=== PATIENT | female | born 1985 | race Caucasian/White ===

== ENCOUNTER → 2018-03-15 16:43 | Outpatient (CLI) | payer OTHER, SELFPAY ==
[2018-03-15 18:40] LABS: Bacteria 0 SEEN /hpf (None Seen); Mucous, Urine 0 SEEN /hpf (<or=2+); Red Blood Cells-Urine 0 SEEN /hpf (0-5); White Blood Cells 0 SEEN /hpf (0-5)
[2018-03-15 19:17] LABS: Color, Urine Yellow (Yellow); Glucose, Dipstick Normal (Normal); Ketone-Dipstick Negative (Negative); Leukocyte Esterase-Dipstick 25 /ul (Negative); Nitrite-Dipstick Negative (Negative); Occult Blood-Urine Negative /ul (Negative); Protein-Dipstick Negative (Negative); Specific Gravity, Urine 1.005 (1.002-1.030); Urine Bilirubin Dipstick Negative (Negative); Urine Clarity Clear (Clear); Urine Urobilinogen Normal (Normal)
[2018-03-15 19:23] LABS: Squamous Epithelial Cells - UA 0-5 SEEN /hpf (5-10)
== END ==
PROVIDERS: Family Provider Student in an Organized Health Care Education/Training Program; PCP Student in an Organized Health Care Education/Training Program; Visit Provider Physician Assistant Surgical
DX: N30.00 Acute cystitis without hematuria (principal)
CPT/HCPCS: 81001; 87086

== ENCOUNTER → 2018-05-20 09:45 | Outpatient (CLI) | payer OTHER, SELFPAY ==
--- NOTE | 2018-05-20 10:18 | RAD_ITS ---
STUDY: X-RAY - RIGHT HAND REASON FOR EXAM: Female, 33 years old. Pain distal first metacarpal TECHNIQUE: 3 view(s) of the hand. COMPARISON: Prior study of 04/17/2017 FINDINGS: Normal radiocarpal articulation. Normal distal radioulnar joint. Normal visualized carpal bones. Normal carpal articulations Normal carpometacarpal articulation of the thumb. Normal second through fifth carpometacarpal joints. Normal metacarpi. Normal metacarpophalangeal joint of the thumb. Normal interphalangeal joint of the thumb. Normal proximal and distal phalanges of the thumb. Normal metacarpophalangeal joints of the second through fifth fingers. Normal proximal and distal interphalangeal joints of the second through fifth fingers. Normal phalanges of the second through fifth fingers. The soft tissue structures are unremarkable. RAD/Hand Min 3 Views IMPRESSION: Normal x-ray examination of the hand. Electronically Signed: Kit Fisher MD at 19:06 EDT , Service support ,
--- NOTE | 2018-05-20 10:19 | RAD_ITS ---
STUDY: X-RAY - LEFT FOOT CLINICAL: Female, 33 years old. Pain, bony growth distal first metatarsal TECHNIQUE: 3 view(s) of the foot. COMPARISON: None. FINDINGS: Normal talus, calcaneus, and tarsal bones. Normal visualized subtalar, talonavicular, calcaneocuboid, tarsal and tarsometatarsal articulations. Normal metatarsi. Normal metatarsophalangeal joint of the great toe. Normal tibial and fibular sesamoid bones. Normal interphalangeal joint of the great toe. Normal phalanges of the great toe. Normal second through fifth metatarsophalangeal joints. Normal interphalangeal joints and phalanges of the lesser toes. The soft tissue structures are unremarkable. RAD/Foot min 3 Views IMPRESSION: Normal x-ray examination of the foot. Electronically Signed: Kit Fisher MD at 19:02 EDT , Service support ,
[2018-05-20 10:58] LABS: Erythrocyte Sedimentation Rate < 1 mm/hr (0-20)
[2018-05-20 11:34] LABS: Vitamin B12 359 pg/mL (211-911); Vitamin D,25 Hydroxy 24.9 ng/mL (29.95-100.01)
[2018-05-20 11:41] LABS: ALB/GLOB Ratio 1.2 RATIO (0.9-2.4); AST(SGOT) 11 U/L (15-37); Alanine Aminotransfer ALT/SGPT 17 U/L (13-56); Alkaline Phosphatase 38 U/L (45-117); Anion Gap 8 (5-15); BUN 12 mg/dL (7-18); BUN/Creat Ratio 13.5 RATIO (10-20); CRP < 2.90 mg/L (0.0-3.0); Calcium,Total 8.8 mg/dL (8.5-10.1); Chloride 105 mmol/L (98-107); Creatinine, Serum 0.89 mg/dL (0.55-1.02); EST Glomerular Filtration Rate 78 mL/min (>60); Est Glom Filt Rate - Afr Amer 94 mL/min (>60); Globulin 3.2 g/dL (2.2-4.2); Glucose 70 mg/dL (74-106); Potassium 4.2 mmol/L (3.5-5.1); Protein, Total 7.2 g/dL (6.4-8.2); Rheumatoid Factor < 10.0 IU/mL (<15); Sodium Level 140 mmol/L (136-145); T4 Free Direct 0.97 ng/dL (0.76-1.46); Thyroid Stim Hormone (TSH) 0.78 uIU/mL (0.358-3.74)
[2018-05-23 11:34] LABS: CCP IgG Antibodies 5 units (0-19)
== END ==
PROVIDERS: Family Provider Student in an Organized Health Care Education/Training Program; PCP Student in an Organized Health Care Education/Training Program; Visit Provider Student in an Organized Health Care Education/Training Program
DX: M79.641 Pain in right hand (principal); M25.375 Other instability, left foot; R41.3 Other amnesia; M25.50 Pain in unspecified joint; L29.9 Pruritus, unspecified; R61 Generalized hyperhidrosis
CPT/HCPCS: 36415; 73130; 73630; 80053; 82306; 82607; 84439; 84443; 84480; 85652; 86038; 86140; 86200; 86431

== ENCOUNTER → 2019-10-16 10:11 | Outpatient (CLI) | payer OTHER, SELFPAY ==
[2018-10-18 11:02] VITALS: BMI 19.1
[2019-10-16 11:05] LABS: Absolute Lymphocyte Count 1.71 X10^3/uL (0.83-4.51); Absolute Neutrophil Count 2.2 X10^3/uL (2.0-7.7); Basophil# 0.04 X10^3/uL; Basophil% 0.9 % (0-1); Eosinophil# 0.11 X10^3/uL; Eosinophils% 2.5 % (0-5); Erythrocyte Sedimentation Rate < 1 mm/hr (0-20); Hematocrit 44.8 % (37-47); Hemoglobin 14.9 g/dL (12.0-15.0); Lymphocyte # 1.71 X10^3/ul (4.0); Lymphocyte % 38.7 % (19-41); Mean Corp Hgb Conc 33.3 g/dL (32-36); Mean Corpuscular Hgb 30.4 pg (27.0-32.0); Mean Corpuscular Volume 91.4 fL (81-99); Mean Platelet Vol. 9.4 fl (6.2-12.0); Monocyte# 0.41 X10^3/uL; Monocyte% 9.3 % (0-10); NRBC Flagged by Analyzer 0 % (0-5); Neutrophil # 2.15 X10^3/uL (2.7-7.7); Neutrophil % 48.6 % (47-70); Platelet Count 272 K/mm3 (150-450); RBC Distribution Width CV 11.7 % (11.6-14.6); RBC Distribution Width SD 39.8 fl (35.1-43.9); White Blood Count 4.4 K/mm3 (4.4-11.0)
[2019-10-16 11:52] LABS: ALB/GLOB Ratio 1.3 RATIO (0.9-2.4); AST(SGOT) 12 U/L (15-37); Alanine Aminotransfer ALT/SGPT 21 U/L (13-56); Albumin, Serum 4.2 g/dL (3.2-5.0); Alkaline Phosphatase 47 U/L (45-117); Anion Gap 6 (5-15); BUN 14 mg/dL (7-18); BUN/Creat Ratio 14.9 RATIO (10-20); CPK Total, Creatine Kinase 82 U/L (26-192); CRP < 2.90 mg/L (0.0-3.0); Calcium,Total 8.8 mg/dL (8.5-10.1); Chloride 106 mmol/L (98-107); Creatinine, Serum 0.94 mg/dL (0.55-1.02); EST Glomerular Filtration Rate 72 mL/min (>60); Est Glom Filt Rate - Afr Amer 87 mL/min (>60); Free T3 2.7 pg/mL (2.18-3.98); Globulin 3.2 g/dL (2.2-4.2); Glucose 84 mg/dL (74-106); Potassium 4.5 mmol/L (3.5-5.1); Protein, Total 7.4 g/dL (6.4-8.2); Rheumatoid Factor < 10.0 IU/mL (<15); Sodium Level 140 mmol/L (136-145); T4 Free Direct 1.08 ng/dL (0.76-1.46); Thyroid Stim Hormone (TSH) 1.96 uIU/mL (0.358-3.74)
[2019-10-17 09:22] LABS: Vitamin D,25 Hydroxy 24.7 ng/mL
[2019-10-17 14:08] LABS: RNP Ab <0.2 AI (0.0-0.9)
[2019-10-17 16:46] LABS: Smith Ab <0.2 AI (0.0-0.9)
== END ==
PROVIDERS: PCP Student in an Organized Health Care Education/Training Program; Referring Provider Student in an Organized Health Care Education/Training Program; Visit Provider Student in an Organized Health Care Education/Training Program
DX: M79.10 Myalgia, unspecified site (principal); M25.50 Pain in unspecified joint; M25.60 Stiffness of unspecified joint, not elsewhere classified
CPT/HCPCS: 80053; 82306; 82550; 84439; 84443; 84481; 85025; 85652; 86140; 86235; 86431

== ENCOUNTER → 2020-11-13 13:25 | Outpatient (CLI) | payer OTHER, SELFPAY ==
[2020-11-13 09:37] VITALS: BMI 18.4
[2020-11-18 12:28] LABS: HPV APTIMA, High Risk Positive (Negative)
== END ==
PROVIDERS: PCP Student in an Organized Health Care Education/Training Program; Visit Provider Obstetrics & Gynecology
DX: Z12.4 Encounter for screening for malignant neoplasm of cervix (principal)
CPT/HCPCS: 87624; 88175; G0145

== ENCOUNTER → 2020-12-12 16:07 | Outpatient (CLI) | payer OTHER, SELFPAY ==
--- NOTE | 2020-12-12 | IMM_PTH ---
PATIENT: MARQUEZ CUBA LOC: [facility] U#:[id number] AGE/SX: 40/F ROOM: RE12/12/[address]: Dr. Anisa Cade MD : 1985 BED: DIS: SPEC #: [id number] RECD: 12/16/20 12:10 STATUS: JUANITO REZoraida #: [id number] COLE: 12/12/20 00:[address]: Anisa Cade DEPT: IMMUNOHISTOCHEMISTRY RECD BY: Beth Peterson ENTERED: 12/16/20 12:11 SP TYPE: IMMUNO OTHR DR: Dr. Shaheen Ernst DO Tissues: A - Uterine cervix, NOS B - Uterine cervix, NOS Procedures: p16 (initial) KI-67 (add) PHYSICIAN & INSTITUTION [place] [id number] SPECIMEN INFORMATION: Tissue Source: A ? Cervix at 8 o?clock, B ? Cervix at 11 o?clock Clinical Info: LGSIL Specimen Number: [id number] A & B CPT code: 04943 x2, 26519 x2 METHODOLOGY: Deparaffinized sections of prefer/formalin-fixed tissue or PAP/DQ stained slides are incubated with monoclonal/polyclonal antibodies/oligonucleotide probes. Localization is made via biotin free immunoperoxidase method. Appropriate controls are performed and reacted as expected. Results on target cell population are indicated in the following table: RESULTS: ANTIBODY / CLONE RESULT Block A P16 (E6H4) positive, focal patchy staining Ki-67 (30-9) positive, low Block B P16 (E6H4) positive, focal patchy staining Ki-67 (30-9) positive, low to moderate These tests were developed and their performance characteristics determined by [facility]. They may not have been cleared or approved by the U.S. Food and Drug Administration. The FDA has determined that such clearance or approval is not necessary. The above immunohistochemical/dualISH markers are ordered and reviewed by the Pathologist. INTERPRETATION: A. Cervix at 8 o?clock, biopsy: Focal changes suspicious for HPV changes. B. Cervix at 11 o?clock, biopsy: Focal mild squamous dysplasia. SJ:ousmane 12/17/2020 Case has been reviewed in consultation with Dr. Guerin who concurs with the above diagnosis. IDC:AM
--- NOTE | 2020-12-12 | CER_PTH ---
PATIENT: MARQUEZ CUBA LOC: [facility] U#:[id number] AGE/SX: 40/F ROOM: RE12/12/[address]: Dr. Anisa Cade MD : 1985 BED: DIS: SPEC #: [id number] RECD: 12/12/20 15:41 STATUS: JUANITO NATE #: [id number] COLE: 12/12/20 00:[address]: Anisa Cade DEPT: SURGICAL PATHOLOGY RECD BY: Latonia Cevallos ENTERED: 12/13/20 08:08 SP TYPE: CERV OTHR DR: Dr. Shaheen Ernst DO Tissues: A - Uterine cervix, NOS B - Uterine cervix, NOS Procedures: Surgery Specimen Level IV HEADER OPERATION: Colposcopy PRE-OP DIAGNOSIS: LGSIL TISSUE SUBMITTED: A ? 8 o?clock, B ? 11 o?clock MICROSCOPIC DIAGNOSIS A. Cervix, 8 o?clock, biopsy: Focal minimal HPV cytopathic effects. Acute and chronic inflammation and extensive squamous metaplasia. Focal hyperkeratosis and parakeratosis. See comment. B. 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 Mild acute and chronic inflammation and extensive squamous metaplasia See comment. SJ:rg 12/16/2020 COMMENT A & B. Immunohistochemistry ([id number]) for surrogate HPV marker (p16) supports the above diagnosis. Case has been reviewed in consultation with Dr. Guerin who concurs with the above diagnosis. IDC:AM MICROSCOPIC DESCRIPTION Slides are reviewed. GROSS DESCRIPTION A - Received in fixative is one container labeled with the patient's name and designated 8 o'clock. The specimen consists of two irregular fragments of light guajardo soft tissue that in aggregate measure 0.5 x 0.3 x 0.1 cm. The specimen is totally submitted in one cassette. B - Received in fixative is one container labeled with the patient's name and designated 11 o'clock. The specimen consists of multiple irregular fragments of light guajardo soft tissue that in aggregate measure 1.2 x 0.3 x <0.1 cm. The specimen is totally submitted in one cassette. / AM:ousmane 12/13/20 TC:5 CPT: 13375 x2
[2020-12-12 09:38] VITALS: BMI 19.1
== END ==
PROVIDERS: PCP Student in an Organized Health Care Education/Training Program; Referring Provider Obstetrics & Gynecology; Visit Provider Obstetrics & Gynecology
DX: N89.8 Other specified noninflammatory disorders of vagina (principal)
CPT/HCPCS: 87070; 87077; 87205; 88305; 88341; 88342

== ENCOUNTER → 2021-04-27 11:27 | Outpatient (CLI) | payer OTHER, SELFPAY ==
[2021-04-27 16:50] LABS: Mucous, Urine 0 SEEN /hpf (<or=2+); Red Blood Cells-Urine 0 SEEN /hpf (0-5); White Blood Cells 0 SEEN /hpf (0-5)
[2021-04-27 17:06] LABS: Color, Urine Yellow (Yellow); Glucose, Dipstick Normal (Normal); Ketone-Dipstick Negative (Negative); Leukocyte Esterase-Dipstick Negative /ul (Negative); Nitrite-Dipstick Negative (Negative); Occult Blood-Urine 25 /ul (Negative); Protein-Dipstick Negative (Negative); Specific Gravity, Urine 1.005 (1.002-1.030); Urine Bilirubin Dipstick Negative (Negative); Urine Clarity Clear (Clear); Urine Urobilinogen Normal (Normal)
[2021-04-27 17:17] LABS: Squamous Epithelial Cells - UA 0-5 SEEN /hpf (5-10)
[2021-04-27 17:18] LABS: Bacteria RARE /hpf (None Seen)
== END ==
PROVIDERS: PCP Student in an Organized Health Care Education/Training Program; Referring Provider Nurse Practitioner Family; Visit Provider Nurse Practitioner Family
DX: N30.00 Acute cystitis without hematuria (principal)
CPT/HCPCS: 81001; 87086; 87088; 87186

== ENCOUNTER 2021-07-25 10:00 | Outpatient (RCR) | payer OTHER, SELFPAY ==
--- NOTE | 2021-08-29 12:29 | HP.PT.NRP ---
MARQUEZ CUBA was seen in my office for initial evaluation on . The following Plan of Care was established for this patient: This patient was last seen in our office 07/25/21. Pertinent comments regarding their Physical therapy will appear below: Pt. was seen in PT for DN. She has not been seen in ~5 weeks and will be DC from PT at this point in time. At this point I will be discontinuing this patient from physical therapy. I would be happy to see this patient again in the future if found appropriate by the physician. Thank you! Ananth Mendez, ERICAT
== END 2021-07-25 19:00 | disposition home or self-care (01) ==
LOC: PT 10:00
PROVIDERS: PCP Student in an Organized Health Care Education/Training Program
DX: R69 Illness, unspecified (principal)

== ENCOUNTER → 2021-12-25 | Outpatient (CLI) | payer OTHER, SELFPAY ==
[2021-12-25 10:42] LABS: Estradiol 150.7 pg/mL; Follicle Stimulating Hormone 9.6 mIU/mL; T4 Free Direct 1.19 ng/dL (0.76-1.46); Thyroid Stim Hormone (TSH) 2.08 uIU/mL (0.358-3.74)
[2021-12-30 11:09] LABS: Testosterone, Total 34 ng/dL (8-60)
[2021-12-30 15:38] LABS: Testosterone, % Free 1.46 % (0.50-2.80)
== END | disposition home or self-care (01) ==
LOC: LAB 09:37
PROVIDERS: PCP Student in an Organized Health Care Education/Training Program; Referring Provider Obstetrics & Gynecology; Visit Provider Obstetrics & Gynecology
DX: N95.1 Menopausal and female climacteric states (principal)
CPT/HCPCS: 36415; 82670; 83001; 83002; 84146; 84402; 84403; 84439; 84443

== ENCOUNTER → 2021-12-31 | Outpatient (CLI) | payer OTHER, SELFPAY ==
--- NOTE | 2021-12-31 09:19 | BI_ITS ---
MAMMOGRAPHY - BILATERAL DIAGNOSTIC REASON FOR EXAM: Female, 36 years old. Enlarged left breast. Right nipple discharge. PERTINENT HISTORY: Grandmother with breast cancer. TECHNIQUE: Digital bilateral breast chuy (3D mammographic acquisition) in the CC and MLO projections. 2-D mediolateral oblique (MLO) and craniocaudad (CC) views of both breasts were obtained. CAD: Full Field Digital Mammography with Computer Added Detection was performed. COMPARISON: None. Baseline examination. FINDINGS: Breast Composition: The breasts are extremely dense, which lowers the sensitivity of mammography. There are no dominant masses or suspicious calcifications. No other significant abnormalities are identified. BI/DIAG MAMM W/CAD, BILAT IMPRESSION: Negative diagnostic mammogram. With the patient''s history of right nipple discharge, targeted ultrasound is recommended. ASSESSMENT CATEGORY: BIRADS Category 0: Incomplete. Need additional imaging evaluation. A letter regarding these results will be sent to the patient by the facility within 30 days. Approximately 10% of breast cancers are not detected by mammography. A normal mammogram should not delay biopsy of a clinically suspicious abnormality. Electronically Signed: Jorge Reece MD at 10:40 EDT ,
--- NOTE | 2021-12-31 09:19 | US_ITS ---
STUDY: ULTRASOUND BREAST - RIGHT REASON FOR EXAM: Female, 36 years old. Nipple discharge in the right breast. TECHNIQUE: Axial and longitudinal images of the RIGHT breast were performed with a high resolution ultrasound transducer. # OF IMAGES: 50 COMPARISON: Comparison is made with prior mammogram done earlier today. FINDINGS: RIGHT Breast: There is an 8mm by 7 mm x 4 mm retroareolar cyst. A septation is seen within it. A follow-up sonogram in 4 months is recommended. IMPRESSION: 8 mm x 7 mm x 4 mm septated retroareolar cyst. 4 month follow-up sonogram is recommended. ASSESSMENT CATEGORY: BIRADS Category 3: Probably Benign - Short-Interval Follow-up Suggested. A letter regarding these results will be sent to the patient by the facility within 30 days. Electronically Signed: Jorge Reece MD at 14:11 EDT , STUDY: ULTRASOUND BREAST - LEFT REASON FOR EXAM: Female, 36 years old. Nipple discharge in the left breast. TECHNIQUE: Axial and longitudinal images of the LEFT breast were performed with a high resolution ultrasound transducer. # OF IMAGES: 50 COMPARISON: Comparison is made with prior mammogram done earlier today. FINDINGS: LEFT Breast: Multiple small cysts are seen in the retroareolar region of the breast. The largest cyst measures 1 cm x 1 cm x 0.5 cm. US/Breast Limited Unilateral IMPRESSION: Multiple cysts are seen in the retroareolar region of the breast. ASSESSMENT CATEGORY: BIRADS Category 2: Benign. A letter regarding these results will be sent to the patient by the facility within 30 days. Electronically Signed: Jorge Reece MD at 14:12 EDT ,
== END | disposition home or self-care (01) ==
LOC: OPBI 09:17
PROVIDERS: PCP Student in an Organized Health Care Education/Training Program; Visit Provider Obstetrics & Gynecology
DX: N64.3 Galactorrhea not associated with childbirth (principal)
CPT/HCPCS: 76642; 77062; 77066; G0279

== ENCOUNTER → 2022-03-02 | Outpatient (CLI) | payer OTHER, SELFPAY ==
--- NOTE | 2022-03-02 14:26 | BI_ITS ---
MAMMOGRAPHY - UNILATERAL DIAGNOSTIC: RIGHT BREAST REASON FOR EXAM: Female, 37 years old. Right axillary lump. PERTINENT HISTORY: Grandmother with breast cancer. TECHNIQUE: Digital unilateral breast chuy (3D mammographic acquisition) in the CC and MLO projections. 2-D mediolateral oblique (MLO) and craniocaudad (CC) views of both breasts were obtained. CAD: Full Field Digital Mammography with Computer Added Detection was performed. COMPARISON: Comparison is made with prior study dated 12/31/2021. FINDINGS: Breast Composition: The breasts are extremely dense, which lowers the sensitivity of mammography. There are no dominant masses or suspicious calcifications. No other significant abnormalities are identified. There has been no significant change since the prior study. BI/DIAG MAMM W/CAD, UNILAT IMPRESSION: Stable unilateral diagnostic mammogram. With the patient''s history of a palpable lump in the left axillary region, correlation with ultrasound is recommended. ASSESSMENT CATEGORY: BIRADS Category 0: Incomplete. Need additional imaging evaluation. A letter regarding these results will be sent to the patient by the facility within 30 days. Approximately 10% of breast cancers are not detected by mammography. A normal mammogram should not delay biopsy of a clinically suspicious abnormality. Electronically Signed: Jorge Reece MD at 15:23 EDT ,
--- NOTE | 2022-03-02 14:26 | US_ITS ---
STUDY: ULTRASOUND BREAST - RIGHT REASON FOR EXAM: Female, 37 years old. Right breast lump. TECHNIQUE: Axial and longitudinal images of the RIGHT breast were performed with a high resolution ultrasound transducer. # OF IMAGES: 16 COMPARISON: Comparison is made with prior mammogram dated 03/02/2022 and prior sonogram of the right breast dated 12/31/2021. FINDINGS: RIGHT Breast: There is a 1.5 cm x 1.6 cm x 0.4 cm cyst at the 10 o''clock position of the breast at 7 cm from nipple. This also evidence of a 1 cm x 1.2 cm x 0.9 cm cyst at the 10 o''clock position of the breast at 6 cm from nipple. Stable 7 mm x 9 mm x 7 mm septated cyst at the 9 o''clock position of the breast. US/Breast Limited Unilateral IMPRESSION: Cysts are seen in the upper outer quadrant of the right breast. The largest cyst measures 1.5 cm x 1.6 cm by 0.4 cm ASSESSMENT CATEGORY: BIRADS Category 2: Benign. A letter regarding these results will be sent to the patient by the facility within 30 days. Electronically Signed: Jorge Reece MD at 8:28 EDT ,
== END | disposition home or self-care (01) ==
LOC: OPBI 14:25
PROVIDERS: PCP Student in an Organized Health Care Education/Training Program; Visit Provider Obstetrics & Gynecology
DX: N63.10 Unspecified lump in the right breast, unspecified quadrant (principal); Z80.3 Family history of malignant neoplasm of breast; N60.01 Solitary cyst of right breast
CPT/HCPCS: 76642; 77061; 77065; G0279

== ENCOUNTER → 2022-03-25 | Outpatient (CLI) | payer OTHER, SELFPAY ==
[2022-03-27 22:06] LABS: Chlamydia By Nucleic Acid AMP Positive (Negative)
[2022-03-27 22:10] LABS: Gonococcus By Nucleic Acid AMP Negative (Negative)
[2022-03-31 19:07] LABS: HPV Genotype 16, Aptima Negative (Negative)
[2022-03-31 20:10] LABS: HPV APTIMA, High Risk Positive (Negative); HPV Genotype 18,45 Aptima Negative (Negative)
== END | disposition home or self-care (01) ==
LOC: LABSPEC 16:21
PROVIDERS: PCP Student in an Organized Health Care Education/Training Program; Visit Provider Obstetrics & Gynecology
DX: Z11.3 Encounter for screening for infections with a predominantly sexual mode of transmission (principal); N89.8 Other specified noninflammatory disorders of vagina; Z12.4 Encounter for screening for malignant neoplasm of cervix
CPT/HCPCS: 87070; 87205; 87491; 87591; 87624; 88175; G0145

== ENCOUNTER 2022-07-01 15:20 | Outpatient (CLI) | payer OTHER, SELFPAY ==
[2022-07-05 10:21] LABS: Gonococcus By Nucleic Acid AMP Negative (Negative)
[2022-07-06 16:20] LABS: Chlamydia By Nucleic Acid AMP Positive (Negative)
== END 2022-07-01 23:59 | disposition home or self-care (01) ==
PROVIDERS: PCP Student in an Organized Health Care Education/Training Program; Visit Provider Obstetrics & Gynecology
DX: A74.9 Chlamydial infection, unspecified (principal); Z20.2 Contact with and (suspected) exposure to infections with a predominantly sexual mode of transmission; N89.8 Other specified noninflammatory disorders of vagina
CPT/HCPCS: 87070; 87205; 87491; 87591

== ENCOUNTER → 2022-10-06 | Outpatient (CLI) | payer OTHER, SELFPAY ==
[2022-10-06 15:10] LABS: Estradiol 26.1 pg/mL; Follicle Stimulating Hormone 4.4 mIU/mL; Luteinizing Hormone 15.5 mIU/mL; Thyroid Stim Hormone (TSH) 2.16 uIU/mL (0.358-3.74)
== END | disposition home or self-care (01) ==
LOC: LAB 13:22
PROVIDERS: PCP Student in an Organized Health Care Education/Training Program; Referring Provider Obstetrics & Gynecology; Visit Provider Obstetrics & Gynecology
DX: L65.9 Nonscarring hair loss, unspecified (principal)
CPT/HCPCS: 36415; 82670; 83001; 83002; 84443

== ENCOUNTER → 2022-12-02 | Outpatient (CLI) | payer OTHER, SELFPAY ==
[2022-12-03 22:06] LABS: Chlamydia By Nucleic Acid AMP Negative (Negative)
[2022-12-03 22:21] LABS: Gonococcus By Nucleic Acid AMP Negative (Negative)
== END | disposition home or self-care (01) ==
LOC: LABSPEC 11:01
PROVIDERS: PCP Student in an Organized Health Care Education/Training Program; Referring Provider Obstetrics & Gynecology; Visit Provider Obstetrics & Gynecology
DX: A74.9 Chlamydial infection, unspecified (principal); N76.0 Acute vaginitis
CPT/HCPCS: 87070; 87205; 87491; 87591

== ENCOUNTER → 2024-02-02 | Outpatient (CLI) | payer OTHER, SELFPAY ==
[2024-02-05 06:10] LABS: Chlamydia By Nucleic Acid AMP Negative (Negative); Gonococcus By Nucleic Acid AMP Negative (Negative)
== END | disposition home or self-care (01) ==
LOC: LABSPEC 16:23
PROVIDERS: PCP Student in an Organized Health Care Education/Training Program; Referring Provider Obstetrics & Gynecology; Visit Provider Obstetrics & Gynecology
DX: Z11.3 Encounter for screening for infections with a predominantly sexual mode of transmission (principal); R30.0 Dysuria; N89.8 Other specified noninflammatory disorders of vagina
CPT/HCPCS: 87070; 87086; 87205; 87491; 87591

== ENCOUNTER → 2024-04-19 | Outpatient (CLI) | payer OTHER, SELFPAY ==
[2024-04-19 09:49] LABS: Absolute Lymphocyte Count 1.49 X10^3/uL (0.83-4.51); Absolute Neutrophil Count 3.1 X10^3/uL (2.0-7.7); Basophil# 0.05 X10^3/uL; Basophil% 0.9 % (0-1); Eosinophil# 0.15 X10^3/uL; Eosinophils% 2.7 % (0-5); Hematocrit 43.2 % (37-47); Hemoglobin 14.6 g/dL (12.0-15.0); Lymphocyte # 1.49 X10^3/ul (0.83-4.51); Lymphocyte % 26.9 % (19-41); Mean Corp Hgb Conc 33.8 g/dL (32-36); Mean Corpuscular Hgb 30.4 pg (27.0-32.0); Monocyte# 0.71 X10^3/uL; Monocyte% 12.8 % (0-10); NRBC Flagged by Analyzer 0 % (0-5); Neutrophil # 3.13 X10^3/uL (2.7-7.7); Neutrophil % 56.5 % (47-70); Platelet Count 303 K/mm3 (150-450); RBC Distribution Width SD 39.6 fl (35.1-43.9); White Blood Count 5.5 K/mm3 (4.4-11.0)
[2024-04-19 10:41] LABS: AST(SGOT) 19 U/L (15-37); Alanine Aminotransfer ALT/SGPT 19 U/L (13-56); Albumin, Serum 3.7 g/dL (3.2-5.0); Alkaline Phosphatase 50 U/L (45-117); Anion Gap 6 (5-15); BUN 9 mg/dL (7-18); BUN/Creat Ratio 8.7 RATIO (10-20); Calcium,Total 9.1 mg/dL (8.5-10.1); Chloride 108 mmol/L (98-107); Cholesterol 186 mg/dL (200); Creatinine, Serum 1.04 mg/dL (0.55-1.02); EST Glomerular Filtration Rate 63 mL/min (>60); Est Glom Filt Rate - Afr Amer 76 mL/min (>60); Globulin 3.8 g/dL (2.2-4.2); Glucose 88 mg/dL (74-106); High Density Lipoprotein 57 mg/dL; Magnesium 2.1 mg/dL (1.6-2.6); Potassium 4.3 mmol/L (3.5-5.1); Protein, Total 7.5 g/dL (6.4-8.2); Sodium Level 138 mmol/L (136-145); Triglycerides 52 mg/dL; Very Low Density Lipoprotein 10 mg/dL (5-40)
[2024-04-19 14:22] LABS: Hemoglobin A1c 4.9 % (3.8-5.6)
== END | disposition home or self-care (01) ==
LOC: LAB 09:21
PROVIDERS: PCP Student in an Organized Health Care Education/Training Program; Referring Provider Nurse Practitioner Family; Visit Provider Nurse Practitioner Family
DX: R03.0 Elevated blood-pressure reading, without diagnosis of hypertension (principal); Z13.1 Encounter for screening for diabetes mellitus; Z13.6 Encounter for screening for cardiovascular disorders; Z13.220 Encounter for screening for lipoid disorders; R53.83 Other fatigue
CPT/HCPCS: 36415; 80053; 80061; 82533; 83036; 83735; 84443; 85025

== ENCOUNTER → 2024-05-04 | Outpatient (CLI) | payer OTHER, SELFPAY ==
--- NOTE | 2024-05-04 09:11 | AAAS_ITS ---
Reason For Study: AAA Screening Aorta Measurements Aorta Doppler Measurements Proximal aorta measures1.39 x 1.39cm. in cross- Peak systolic flow velocities within the proximal sectional axis. aorta measure 124.9 cm/sec. Proximal aorta measures1.41cm. in longitudinal Peak systolic flow velocities within the mid aorta axis. measure 106.7 cm/sec. Mid aorta measures1.37 x 1.32cm. in cross- Peak systolic flow velocities within the distal sectional axis. aorta measure 121.2 cm/sec. Mid aorta measures1.35cm. in longitudinal axis. Distal aorta measures1.34 x 1.34cm. in cross- sectional axis. Distal aorta measures1.37cm. in longitudinal axis. Left Iliac Artery Left iliac artery measures 0.84 x 0.81 cm. in the cross-sectional axis. Left iliac artery measures 0.87 cm. in the longitudinal axis. Peak systolic velocity in the left iliac artery measures 134.5 cm/sec. Right Iliac Artery Right iliac artery measures 0.85 x 0.88 cm. in the cross-sectional axis. Right iliac artery measures 0.84 cm. in the longitudinal axis. Peak systolic velocity in the right iliac artery measures 129.3 cm/sec. VL/AAA Screening Interpretation Summary Aorta patent, normal caliber Bilateral iliac arteries patent, normal caliber Ordering Physician: Gypsy Anderson Referring Physician: Shaheen Ernst Performed By: Dieter Fairchild, RVT
== END | disposition home or self-care (01) ==
LOC: CVS 09:11
PROVIDERS: PCP Student in an Organized Health Care Education/Training Program; Referring Provider Nurse Practitioner Family; Visit Provider Nurse Practitioner Family
DX: Z13.6 Encounter for screening for cardiovascular disorders (principal); Z82.49 Family history of ischemic heart disease and other diseases of the circulatory system
CPT/HCPCS: 76706

== ENCOUNTER → 2024-05-13 | Outpatient (CLI) | payer OTHER, SELFPAY | END | disposition home or self-care (01) | LOC: LAB 09:30 | PROVIDERS: PCP Student in an Organized Health Care Education/Training Program; Referring Provider Obstetrics & Gynecology; Visit Provider Obstetrics & Gynecology | DX: R35.0 Frequency of micturition (principal) | CPT/HCPCS: 87086; 87088; 87186 ==

== ENCOUNTER → 2024-05-17 | Outpatient (CLI) | payer OTHER, SELFPAY ==
[2024-05-17 16:49] LABS: Hematocrit 41.5 % (37-47); Hemoglobin 13.7 g/dL (12.0-15.0); Mean Corpuscular Volume 90.8 fL (81-99); Mean Platelet Vol. 9.1 fl (6.2-12.0); Platelet Count 298 K/mm3 (150-450); RBC Distribution Width CV 12.1 % (11.6-14.6); RBC Distribution Width SD 40.1 fl (35.1-43.9); Red Blood Count 4.57 M/mm3 (4.2-5.4); White Blood Count 5.8 K/mm3 (4.4-11.0)
[2024-05-17 17:21] LABS: T3 Total - Triiodothyronine 1.08 ng/mL (0.6-1.81); Vitamin D,25 Hydroxy 33.5 ng/mL
[2024-05-17 17:37] LABS: AST(SGOT) 12 U/L (15-37); Alanine Aminotransfer ALT/SGPT 21 U/L (13-56); Albumin, Serum 3.6 g/dL (3.2-5.0); Alkaline Phosphatase 51 U/L (45-117); Anion Gap 5 (5-15); BUN 11 mg/dL (7-18); BUN/Creat Ratio 12.4 RATIO (10-20); Calcium,Total 9.1 mg/dL (8.5-10.1); Chloride 108 mmol/L (98-107); Creatinine, Serum 0.89 mg/dL (0.55-1.02); EST Glomerular Filtration Rate 75 mL/min (>60); Est Glom Filt Rate - Afr Amer 91 mL/min (>60); Ferritin 48 ng/mL (8-252); Globulin 3.7 g/dL (2.2-4.2); Glucose 93 mg/dL (74-106); Iron 70 ug/dL (50-170); Iron Binding Capacity,Total 313 ug/dL (250-450); PERCENT IRON SATURATION 22.4 % (15.0-55.0); Protein, Total 7.3 g/dL (6.4-8.2); Rheumatoid Factor < 10.0 IU/mL (<15); Sodium Level 138 mmol/L (136-145); T4 Free Direct 0.92 ng/dL (0.76-1.46)
[2024-05-19 14:10] LABS: ANTINUCLEAR ANTIBODIES DIRECT Negative (Negative)
[2024-05-19 16:10] LABS: Anti-Thyroglobulin AB < 1.0 IU/mL (0.0-0.9); CCP IgG Antibodies 5 units (0-19); Thyroglobulin, Serum Qt. 7.6 ng/mL (1.5-38.5); Thyroid Peroxidase AB < 9 IU/mL (0-34)
== END | disposition home or self-care (01) ==
PROVIDERS: PCP Student in an Organized Health Care Education/Training Program; Referring Provider Nurse Practitioner Family; Visit Provider Nurse Practitioner Family
DX: M79.641 Pain in right hand (principal); M79.642 Pain in left hand; M99.01 Segmental and somatic dysfunction of cervical region; R53.83 Other fatigue; R25.1 Tremor, unspecified; L65.9 Nonscarring hair loss, unspecified; L29.9 Pruritus, unspecified; L67.9 Hair color and hair shaft abnormality, unspecified; F48.9 Nonpsychotic mental disorder, unspecified; F43.9 Reaction to severe stress, unspecified; Z83.2 Family history of diseases of the blood and blood-forming organs and certain disorders involving the immune mechanism
CPT/HCPCS: 36415; 80053; 82306; 82728; 83540; 83550; 84432; 84439; 84443; 84480; 85027; 86038; 86200; 86376; 86431; 86800

== ENCOUNTER → 2024-10-19 | Outpatient (CLI) | payer OTHER, SELFPAY ==
--- NOTE | 2024-10-19 10:42 | RAD_ITS ---
PROCEDURE: WRIST MIN 3 VIEWS REASON FOR EXAM: Pain at the level of the wrist joint. TECHNIQUE: 4 view(s) of the right wrist were obtained including the navicular view. COMPARISON: None. FINDINGS: RIGHT WRIST: No visible fracture. No suspicious bone lesion. Normal alignment. Soft tissues are unremarkable. RAD/Wrist min 3 Views IMPRESSION: No acute abnormality is seen. Reading Location: [facility]
== END | disposition home or self-care (01) ==
LOC: MTRAD 10:41
PROVIDERS: PCP Student in an Organized Health Care Education/Training Program; Referring Provider Physician Assistant Surgical; Visit Provider Physician Assistant Surgical
DX: S69.90XA Unspecified injury of unspecified wrist, hand and finger(s), initial encounter (principal)
CPT/HCPCS: 73110

== ENCOUNTER → 2024-12-01 | Outpatient (CLI) | payer OTHER, SELFPAY ==
[2024-12-01 12:21] LABS: Bacteria 0 SEEN /hpf (None Seen); Mucous, Urine 0 SEEN /hpf (<or=2+); Red Blood Cells-Urine 0 SEEN /hpf (0-5); White Blood Cells 0 SEEN /hpf (0-5)
[2024-12-01 12:47] LABS: Color, Urine Yellow (Yellow); Glucose, Dipstick Normal (Normal); Ketone-Dipstick Negative (Negative); Leukocyte Esterase-Dipstick Negative /ul (Negative); Nitrite-Dipstick Negative (Negative); Occult Blood-Urine Negative /ul (Negative); Protein-Dipstick Negative (Negative); Urine Bilirubin Dipstick Negative (Negative); Urine Clarity Clear (Clear); Urine Urobilinogen Normal (Normal)
[2024-12-01 13:24] LABS: LDH 174 U/L (84-246)
[2024-12-01 13:25] LABS: Squamous Epithelial Cells - UA 0-5 SEEN /hpf (5-10)
[2024-12-01 13:47] LABS: CPK Total, Creatine Kinase 64 U/L (24-195)
[2024-12-04 16:08] LABS: Aldolase 3.1 U/L (3.3-10.3); IgG, Quant 1214 mg/dL (586-1602); Immunoglobulin G, Subclass 1 505 mg/dL (248-810); Immunoglobulin G, Subclass 2 614 mg/dL (130-555); Immunoglobulin G, Subclass 3 107 mg/dL (15-102); Immunoglobulin G, Subclass 4 1 mg/dL (2-96); Immunoglobulin M 127 mg/dL (26-217)
== END | disposition home or self-care (01) ==
PROVIDERS: PCP Student in an Organized Health Care Education/Training Program; Referring Provider Student in an Organized Health Care Education/Training Program; Visit Provider Student in an Organized Health Care Education/Training Program
DX: M25.50 Pain in unspecified joint (principal); M79.10 Myalgia, unspecified site; L29.9 Pruritus, unspecified; N39.0 Urinary tract infection, site not specified; B96.20 Unspecified Escherichia coli [E. coli] as the cause of diseases classified elsewhere
CPT/HCPCS: 36415; 81001; 82085; 82550; 82784; 82787; 83615; 83735; 87086

== ENCOUNTER → 2025-05-15 | Outpatient (CLI) | payer OTHER, SELFPAY ==
[2025-05-21 19:08] LABS: HPV APTIMA, High Risk Negative (Negative)
== END | disposition home or self-care (01) ==
PROVIDERS: PCP Student in an Organized Health Care Education/Training Program; Visit Provider Obstetrics & Gynecology
DX: Z12.4 Encounter for screening for malignant neoplasm of cervix (principal); N89.8 Other specified noninflammatory disorders of vagina
CPT/HCPCS: 87070; 87205; 87624; 88175; G0145

== ENCOUNTER → 2025-05-21 | Outpatient (CLI) | payer OTHER, SELFPAY ==
--- OUTSIDE RECORDS SUMMARY | 2025-01-11 10:47 | XMS RPT_ITS ---
Author Name Auto Generated Organization [facility] Care Team Providers Care Photo Mask Inspector Name Role Phone ELENA CARMEN Attending Unavailable SELF Referring Unavailable SHAHEEN STEWART Primary Care Unavailable SHAHEEN STEWART Attending Unavailable SHAHEEN STEWART Primary Care Unavailable BIRD RHOADES Attending Unavailable SHAHEEN STEWART Referring Unavailable SHAHEEN STEWART Primary Care Unavailable PROBLEMS DATE TYPE CONDITION / CODE ATTENDING STATUS [facility] 01/11/2025 Active Pain in right wr ist / M25.531(ICD-10) BIRD RHOADES Active [facility] 01/11/2025 Active Multiple joint p ain / M25.50(ICD-10) JF, BRID Active [facility] 01/11/2025 Active Myalgia / M79.10(ICD-10) ELOINA RHOADES N Active [facility] 01/11/2025 Active Fatigue, unspeci fied type / R53.83(ICD-10) JF BIRD Active [facility] 01/11/2025 Active Scalp itch / L29.9(ICD-10) JF, ЕКАТЕРИНА KAITLYNN Active 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 01/11/2025 Active Tremor / R25.1(ICD-10) JFCINTHIA TRAVISITLYN Active [facility] PROCEDURES No Procedure Records Found RESULTS CNPTOUTREACH Observed: 03/13/2025 12:00 AM Status: COMPLETED Source: [facility] NOLAMACY Gutierrez ([id number]) 1985 F Date Time Provider Department 03/13/25 SHAHEEN STEWART During your visit today, we recorded the following information about you: Allergies As of Date: 03/13/2025 Noted Allergy Reaction NORCO (HYDROCODONE-ACETAMINOPHEN) 05/17/2014 9 - Itching Date Reviewed: 01/11/2025 Reviewed by: Taina Velez RN - Fully Assessed Visit Diagnosis:Encounter for screening mammogram for breast cancer [Z12.31] Order(s):ALEC SCREENING W JIM [[id number]] Order #: [id number] FUTURE Prescriptions as of 04/13/2025 - wjnro-2-xqs-pzj-gad-dewo oil 1,050 mg(300 mg -675 mg-75 mg) [...] Observed: 01/11/2025 11:02 AM Status: COMPLETED Source: [facility] HNO ID: [id number] Author: BIRD RHOADES PA-C Service: ? Author Type: Physician Sample Book Maker Type: Progress Notes Filed: 01/11/2025 16:13 Note Text: Rheumatology CONSULTATION Date of Service: 01/11/2025 Patient: Macy Noel Medical Record: [id number] Primary Care Physician: Shaheen Stewart DO Last Rheumatology visit: None at [facility] Referring Provider: Shaheen Stewart [address] [place] [address] Macy Noel is here today at request of Dr. Shaheen Stewart specifically for consultation of my opinion in regards to the chief complaint listed below. Correspondence will be shared today via the [employer] electronic health record or through regular mail, where applicable. Recording using [employer] software for draft documentation of the visit was discussed with the patient/authorized major account representative; all questions welcomed and answered. Patient/authorized major account representative agreed to proceed History of Present [...] pain and tightness, managed with Biofreeze, massage, care transitions nurse, TENS, and dry needling. She also notes [...] and variable sleep quality, sometimes waking at 1704-1263 but generally able to return to sleep. 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 TURMERIC ORAL Take by mouth. minoxidil (LONITEN) 2.5 mg tablet Take 1.5 mg by mouth once daily. Labs Latest Ref Rng AND Units 05/23/2014 09/14/2014 05/01/2015 09/05/2015 CBC WBC 3.70 - 11.00 k/uL 5.04 10.02 7.78 Hemoglobin 11.5 - 15.5 g/dL 11.7 12.7 12.9 Hemoglobin, [place] 11.5 - 15.5 g/dL 12.6 Hematocrit 36.0 [...] 74 - 106 MG/DL 78 84 Glucose, [place] 65 - 135 mg/dL 105 BUN 7 [...] infection with Mycobacterium tuberculosis. Test performed by: [facility] [email or web address], [address] [place] [address] CLIA [id number] No evidence of current or previous infection with Mycobacterium tuberculosis. Test performed by: [facility] [email or web address], [address] [place] [address] CLIA [id number] TB Result Negative Negative Negative Latest Ref Rng AND Units 01/23/2013 01/26/2013 03/03/2013 Antibodies DANNY NEGAT Positive DANNY Titer NEGAT 1:160 DANNY Pattern Atypical speckled DNA Antibody <30 IU/mL <12 Anti-Sm <1.0 AI <0.2 Ribosomal SOLE ROUNDING MACHINE OPERATOR Ab <1.0 AI <0.2 Anti-SSA <1.0 AI [...] Full ROM in flexion and extension. Full call center agent strength. No swelling or synovitis along the [...] time of the visit. Will notify via [employer] that they are available if she changes [...] Visit on 01/11/25 CONSULT TO RHEUM/IMMUN DISEASE ajbul-7-rvh-lro-inn-jspb oil 1,050 mg(300 mg -675 mg-75 mg) [...] which included preparing to see the patient, djcz-lq-emuc patient care, completing clinical documentation, obtaining and/or reviewing separately obtained history, performing a medically appropriate examination, counseling and educating the patient/family/caregiver, ordering medications, tests, or procedures, and communicating results to the patient/family/caregiver. Bird Rhoades PA-C Rheumatology Date: January 11, 2025 Time: 4:11 PM CNOV Observed: 01/11/2025 11:00 AM Status: COMPLETED Source: [facility] Office Visit ([facility]) MACY NOEL ([id number]) 1985 F Date Time Provider Department 01/11/25 11:00 AM BIRD RHOADES WSTR During your visit today, we recorded the following information about you: Pulse Respiration Blood pressure Weight 104/minute 17/minute 137/83 58.1 kg Bird Rhoades PA-C 01/11/2025 4:13 PM Signed Rheumatology CONSULTATION Date of Service: 01/11/2025 Patient: Macy Noel Medical Record: [id number] Primary Care Physician: Shaheen Stewart DO Last Rheumatology visit: None at [facility] Referring Provider: Shaheen Stewart [address] [facility] [place] [address] Macy Noel is here today at request of Dr. Shaheen Stewart specifically for consultation of my opinion in regards to the chief complaint listed below. Correspondence will be shared today via the [employer] electronic health record or through regular mail, where applicable. Recording using [employer] software for draft documentation of the visit was discussed with the patient/authorized major account representative; all questions welcomed and answered. Patient/authorized major account representative agreed to proceed History of Present [...] pain and tightness, managed with Biofreeze, massage, care transitions nurse, TENS, and dry needling. She also notes [...] and variable sleep quality, sometimes waking at 2356-8894 but generally able to return to sleep. 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 TURMERIC ORAL Take by mouth. minoxidil (LONITEN) 2.5 mg tablet Take 1.5 mg by mouth once daily. Labs Latest Ref Rng AND Units 05/23/2014 09/14/2014 05/01/2015 09/05/2015 CBC WBC 3.70 - 11.00 k/uL 5.04 10.02 7.78 Hemoglobin 11.5 - 15.5 g/dL 11.7 12.7 12.9 Hemoglobin, [place] 11.5 - 15.5 g/dL 12.6 Hematocrit 36.0 [...] 74 - 106 MG/DL 78 84 Glucose, [place] 65 - 135 mg/dL 105 BUN 7 [...] infection with Mycobacterium tuberculosis. Test performed by: [facility] [email or web address], [address] [id number] CLIA [id number] No evidence of current or previous infection with Mycobacterium tuberculosis. Test performed by: [facility] [email or web address], [address] [place] [address] CLIA [id number] TB Result Negative Negative Negative Latest Ref Rng AND Units 01/23/2013 01/26/2013 03/03/2013 Antibodies DANNY NEGAT Positive DANNY Titer NEGAT 1:160 DANNY Pattern Atypical speckled DNA Antibody <30 IU/mL <12 Anti-Sm <1.0 AI <0.2 Ribosomal SOLE ROUNDING MACHINE OPERATOR Ab <1.0 AI <0.2 Anti-SSA <1.0 AI [...] Full ROM in flexion and extension. Full call center agent strength. No swelling or synovitis along the [...] time of the visit. Will notify via [employer] that they are available if she changes [...] Visit on 01/11/25 CONSULT TO RHEUM/IMMUN DISEASE aixeo-4-cti-kwt-dav-dtep oil 1,050 mg(300 mg -675 mg-75 mg) [...] which included preparing to see the patient, xcdr-gv-vsym patient care, completing clinical documentation, obtaining and/or reviewing separately obtained history, performing a medically appropriate examination, counseling and educating the patient/family/caregiver, ordering medications, tests, or procedures, and communicating results to the patient/family/caregiver. Bird Rhoades PA-C Rheumatology Date: January 11, 2025 Time: 4:11 PM Referring Provider: SHAHEEN STEWART [[id number]] Allergies As of Date: 01/11/2025 Noted Allergy [...] Order(s):CONSULT TO RHEUM/IMMUN DISEASE [9039] Order #: [id number]: [address] [SQLUPUSP] Order #: [id number] FUTURE DNA AB DS + CONF BLD [SQDNA] Order #: [id number] FUTURE C3 COMPLEMENT [[id number]] Order #: [id number] FUTURE C4 COMPLEMENT [[id number]] Order #: [id number] FUTURE SEDIMENTATION RATE, WESTERGREN [SQWSR] Order #: [id number] FUTURE C-REACTIVE PROTEIN [SQCRP] Order #: [id number] FUTURE Prescriptions as of 01/11/2025 - dfsjn-2-luz-bun-iyf-fxju oil 1,050 mg(300 mg -675 mg-75 mg) [...] Observed: 12/01/2024 12:00 AM Status: COMPLETED Source: [facility] MACY NOEL ([id number]) 1985 F Date Time Provider Department 12/01/24 [...] Observed: 11/10/2024 11:58 AM Status: COMPLETED Source: [facility] ID: [id number] Author: SHAHEEN STEWART, DO Service: ? Author [...] February 2024 had her wellness visit with HEALTH OFFICER and she was started on OCP but [...] taper of medication and then seen by BAKER PIE on 10/25 and she was just starting [...] teeth PAST SURGICAL HISTORY OF 05/18/14, 08/2014 [facility] Current Outpatient Medications Medication Sig TURMERIC ORAL Take by mouth. minoxidil (LONITEN) 2.5 mg tablet Take 1.5 mg by mouth once daily. No current facility-administered medications for this visit. ALLERGIES Allergen Reactions [place] [Hydrocodone-* Itching Social History Tobacco Use Smoking [...] 719.49, ICD10: M25.50 Labs as ordered Recommend Cheese Wrapper opinion at this time as well. Unsure if she has inflammatory joint disease or other cause of symptoms - IGG SUBCLASS 1,2,3,4 - IMMUNOGLOBULIN M - CELIAC ASSOC HLA-DQ GENOTYPE - CONSULT TO RHEUM/IMMUN DISEASE - CREATINE KINASE/CK - ALDOLASE BLD - MAGNESIUM - LACTATE DEHYDROGENASE 3. Myalgia - ICD9: 729.1, ICD10: M79.10 Labs as ordered Recommend Cheese Wrapper opinion at this time as well. Unsure if she has inflammatory joint disease or other cause of symptoms - IGG SUBCLASS 1,2,3,4 - IMMUNOGLOBULIN M - CELIAC ASSOC HLA-DQ GENOTYPE - CONSULT TO RHEUM/IMMUN DISEASE - CREATINE KINASE/CK - ALDOLASE BLD - MAGNESIUM - LACTATE DEHYDROGENASE 4. Scalp itch - ICD9: 698.9, ICD10: L29.9 Labs as ordered Recommend Cheese Wrapper opinion at this time as well. Unsure if she has inflammatory joint disease or other cause of symptoms F/u with Outreach Specialist for scalp testing - IGG SUBCLASS 1,2,3,4 - IMMUNOGLOBULIN M - CELIAC ASSOC HLA-DQ GENOTYPE - CONSULT TO RHEUM/IMMUN DISEASE - CONSULT TO DERMATOLOGY 5. Fatigue, unspecified type - ICD9: 780.79, ICD10: R53.83 Labs as ordered Recommend Cheese Wrapper opinion at this time as well. Unsure [...] plan. See patient instructions. Shaheen Stewart DO [address] [place] [address] CNOV Observed: 11/10/2024 11:00 AM Status: COMPLETED Source: [facility] MACY NOEL ([id number]) 1985 F Date Time Provider Department 11/10/24 [...] February 2024 had her wellness visit with HEALTH OFFICER and she was started on OCP but [...] taper of medication and then seen by BAKER PIE on 10/25 and she was just starting [...] teeth PAST SURGICAL HISTORY OF 05/18/14, 08/2014 [facility] Current Outpatient Medications Medication Sig TURMERIC ORAL Take by mouth. minoxidil (LONITEN) 2.5 mg tablet Take 1.5 mg by mouth once daily. No current facility-administered medications for this visit. ALLERGIES Allergen Reactions [place] [Hydrocodone-* Itching Social History Tobacco Use Smoking [...] 719.49, ICD10: M25.50 Labs as ordered Recommend Cheese Wrapper opinion at this time as well. Unsure if she has inflammatory joint disease or other cause of symptoms - IGG SUBCLASS 1,2,3,4 - IMMUNOGLOBULIN M - CELIAC ASSOC HLA-DQ GENOTYPE - CONSULT TO RHEUM/IMMUN DISEASE - CREATINE KINASE/CK - ALDOLASE BLD - MAGNESIUM - LACTATE DEHYDROGENASE 3. Myalgia - ICD9: 729.1, ICD10: M79.10 Labs as ordered Recommend Cheese Wrapper opinion at this time as well. Unsure if she has inflammatory joint disease or other cause of symptoms - IGG SUBCLASS 1,2,3,4 - IMMUNOGLOBULIN M - CELIAC ASSOC HLA-DQ GENOTYPE - CONSULT TO RHEUM/IMMUN DISEASE - CREATINE KINASE/CK - ALDOLASE BLD - MAGNESIUM - LACTATE DEHYDROGENASE 4. Scalp itch - ICD9: 698.9, ICD10: L29.9 Labs as ordered Recommend Cheese Wrapper opinion at this time as well. Unsure if she has inflammatory joint disease or other cause of symptoms F/u with Outreach Specialist for scalp testing - IGG SUBCLASS 1,2,3,4 - IMMUNOGLOBULIN M - CELIAC ASSOC HLA-DQ GENOTYPE - CONSULT TO RHEUM/IMMUN DISEASE - CONSULT TO DERMATOLOGY 5. Fatigue, unspecified type - ICD9: 780.79, ICD10: R53.83 Labs as ordered Recommend Cheese Wrapper opinion at this time as well. Unsure [...] plan. See patient instructions. Shaheen Stewart DO [address] [place] [address] Allergies As of Date: 11/10/2024 Noted Allergy Reaction NORCO (HYDROCODONE-ACETAMINOPHEN) 05/17/2014 9 - Itching Date Reviewed: 11/10/2024 Reviewed by: Aline Segura LPN - Fully Assessed Reason for Visit: Wrist Pain [1580] Cmt: x 3 weeks Primary Visit Diagnosis:E. coli UTI [N39.0, B96.20] Other Visit Diagnoses:Multiple joint pain [M25.50] Myalgia [M79.10] Scalp itch [L29.9] Fatigue, unspecified type [R53.83] Order(s):URINALYSIS, WITH MICROSCOPIC [SQUAWMIC] Order #: [id number] FUTURE BACTERIAL CULTURE, URINE [SQURCUL] Order #: [id number] FUTURE IGG SUBCLASS 1,2,3,4 [ZDLS3784] Order #: [id number] FUTURE IMMUNOGLOBULIN M [SQIGM] Order #: [id number] FUTURE CELIAC ASSOC HLA-DQ GENOTYPE [SQCELIA] Order #: [id number] FUTURE CONSULT TO RHEUM/IMMUN DISEASE [9039] Order #: [id number]: 1 FUTURE CONSULT TO DERMATOLOGY [9006] Order #: [id number]: 1 FUTURE CREATINE KINASE/CK [SQCK] Order #: [id number] FUTURE ALDOLASE BLD [SQALD] Order #: [id number] FUTURE MAGNESIUM [SQMG1] Order #: [id number] FUTURE LACTATE DEHYDROGENASE [SQLD6] Order #: [id number] FUTURE Prescriptions as of 11/15/2024 - TURMERIC [...] Encounter Status:Closed by SHAHEEN STEWART on 11/15/24 [facility] Observed: 11/08/2024 12:00 AM Status: COMPLETED Source: [facility] MACY NOEL ([id number]) 1985 F Date Time Provider Department 11/08/24 SHAHEEN STEWART [facility] During your visit today, we recorded the following information about you: Lucy Cain 11/08/2024 11:44 AM Signed Patient presented at help desk assistant as FMLA forms previously submitted were rejected [...] Observed: 10/26/2024 12:00 AM Status: COMPLETED Source: [facility] MACY NOEL ([id number]) 1985 F Date Time Provider Department 10/26/24 [facility] During your visit today, we recorded [...] Date Reviewed: 10/25/2024 Reviewed by: Elena Carmen APRN.BAKER PIE - Fully Assessed Reason for Visit: Forms [...] Observed: 10/25/2024 10:28 AM Status: COMPLETED Source: [facility] ID: [id number] Author: ELENA CARMEN APRN.BAKER PIE Service: ? Author Type: Nurse Practitioner Type: [...] teeth PAST SURGICAL HISTORY OF 05/18/14, 08/2014 [facility] Family History FAMILY HISTORY Problem Relation Age of Onset Cancer Mother SKIN CANCER Stroke Mother Hypertension Father Aneurysm Father Abdominal Aortic other (spina bifida) Brother Cardiomyopathy Brother Arthritis Maternal Grandmother Cancer Maternal Grandmother UTERINE CANCER Diabetes Maternal Grandmother Heart Maternal Grandfather Breast Cancer Paternal Grandmother Stroke Paternal Grandmother Cancer Paternal Grandfather BONE CANCER other (eliecer syndrome) Son Patient Allergies ALLERGIES Allergen Reactions [place] [Hydrocodone-* Itching Current Medications Current Outpatient Medications [...] While on the prednisone prescribed by [facility], her chronic back, upper neck, neck pain [...] M99.01 While on the prednisone prescribed by [facility] clinic, her chronic back, upper neck, [...] M54.9 While on the prednisone prescribed by [facility] clinic, her chronic back, upper neck, [...] While on the prednisone prescribed by [facility], her chronic back, upper neck, neck pain [...] Observed: 10/25/2024 9:40 AM Status: COMPLETED Source: [facility] MACY NOEL ([id number]) 1985 F Date Time Provider Department 10/25/24 9:40 AM ELENA CARMEN During your visit today, we recorded the following information about you: Pulse Blood pressure Weight 94/minute 106/62 59.3 kg Elena Carmen APRN.CNP 10/25/2024 2:58 PM Signed Chief Complaint Patient presents with: Wrist Pain: R wrist, joint pain, just completed 6 days of prednisone prescribe by [facility], pt reports no recent injury that she [...] teeth PAST SURGICAL HISTORY OF 05/18/14, 08/2014 [facility] Family History FAMILY HISTORY Problem Relation Age of Onset Cancer Mother SKIN CANCER Stroke Mother Hypertension Father Aneurysm Father Abdominal Aortic other (spina bifida) Brother Cardiomyopathy Brother Arthritis Maternal Grandmother Cancer Maternal Grandmother UTERINE CANCER Diabetes Maternal Grandmother Heart Maternal Grandfather Breast Cancer Paternal Grandmother Stroke Paternal Grandmother Cancer Paternal Grandfather BONE CANCER other (eliecer syndrome) Son Patient Allergies ALLERGIES Allergen Reactions [place] [Hydrocodone-* Itching Current Medications Current Outpatient Medications [...] While on the prednisone prescribed by [facility], her chronic back, upper neck, neck pain [...] Date Reviewed: 10/25/2024 Reviewed by: Elena Carmen APRN.BAKER PIE - Fully Assessed Reason for Visit: Wrist [...] Service: OFFICE/OUTPATIENT ESTABLISHED MOD MDM 30 MIN [39136] Additional E/M codes: VISIT CPLX INHERENT EANDM ASSOC WITH MED * Encounter Status:Closed by ELENA CARMEN on 10/25/24 [facility] Observed: 10/25/2024 12:00 AM Status: COMPLETED Source: [facility] Letter Text ALLERGIES DATE TYPE / CODE NAME / CODE REACTION SEVERITY SOURCE 05/17/2014 DRUG/[id number](SN OMED CT) HYDROCODONE-ACETA MINOPHEN ITCHING [facility] ENCOUNTERS ADMIT/DISCHARGE ACCOUNT NUMBER ADMITTING ENCOUNTER CLASS LOC ATION SOURCE 01/11/2025/ 5 [id number] [facility] 11/10/2024/ 5 [id number] [facility]24/ [id number] Ambulatory [facility] PAYERS ENCOUNTER GUARANTOR PAYER SUBSCRIBER SOURCE 01/11/2025 Primary Insuranc e:[facility] Number: [id number] Date:5275-18-63Diqn Name:Sivakumar MACY VACAHDOB: [id number] [place] [address] [facility] 11/10/2024 Primary Insuranc e:[facility]Policy Number: [id number] Date:4631-71-54Tqgp Name:Sivakumar MACY VACAHDOB: [id number] [place] [address] [facility] 10/25/2024 Primary Insuranc e:[facility]Policy Number: [id number] Date:4159-78-16Moms Name:Sivakumar MACY VACAHDOB: [id number] [facility] [place] [address] [facility]
--- NOTE | 2025-05-21 09:19 | US_ITS ---
PROCEDURE: BREAST LIMITED UNILATERAL 05/21/2025 REASON FOR EXAM: F, Age 40 y/o , BREAST LUMP inconclusive mammogram. Left breast mass. Evaluate. COMPARISON: Mammogram studies dated 05/21/2025 and 03/02/2022.. TECHNIQUE: Procedure Code: USBRSTLIMIT Modality: US Procedure: BREAST LIMITED UNILATERAL FINDINGS: There is a benign-appearing cyst identified in the left breast at the 2 o'clock, 5 cm from the nipple position measuring 2.5 x 2.5 x 2.0 cm. It does have some echogenic debris within it. This mass does correlate to a palpable abnormality as well as the mass seen on the mammogram. Aspiration is recommended. No suspicious solid masses are seen to suggest malignancy. US/Breast Limited Unilateral IMPRESSION: There is a benign-appearing cystic mass in the left breast which has some inter nal echoes within it. Aspiration is recommended. BI-RADS 4: SUSPICIOUS RECOMMENDATION: OTHER aspiration of the cystic mass. Reading Location: [id number]
--- NOTE | 2025-05-21 09:19 | US_ITS ---
PROCEDURE: BREAST LIMITED UNILATERAL 05/21/2025 REASON FOR EXAM: FA, Age 40 y/o , BREAST LUMP Inconclusive mammogram shows a mass. Evaluate. COMPARISON: Mammogram dated 05/21/2025. TECHNIQUE: Procedure Code: USBRSTLIMIT Modality: US Procedure: BREAST LIMITED UNILATERAL FINDINGS: There is a benign-appearing cyst in the right breast at the 10 o'clock, 6 cm from the nipple position measuring 2.4 x 2.2 x 1.1 cm. The cyst does have a few internal echoes. It does correlate to the palpable mass and mass seen on the mammogram. No suspicious solid masses are seen. US/Breast Limited Unilateral IMPRESSION: There is a benign-appearing cystic mass in the right breast. It does have some internal echoes. Ultrasound-guided aspiration is recommended. BI-RADS 4: SUSPICIOUS RECOMMENDATION: Surgical consult to aspirate the cyst in the right breast. Reading Location: [id number]
--- NOTE | 2025-05-21 09:30 | BI_ITS ---
EXAM: DIAG MAMM W/CAD, BILAT 05/21/2025 CLINICAL HISTORY: F, Age 40 y/o , BREAST LUMP. Bilateral breast palpable abnormalities. Evaluate. Patient has lost 10 lb recently. TECHNIQUE: Procedure Code: [id number] Modality: MG Procedure: DIAG MAMM W/CAD, BILAT. COMPARISON: Prior exam(s) dated 03/02/2022. FINDINGS: TISSUE DENSITY: The breasts are extremely dense, which lowers the sensitivity of mammography. Bilateral Breast Mammographic Findings: There are partially obscured isodense masses in both the right and left breast correlating to the palpable areas. The right breast mass measures approximate 2.5 cm in the left breast mass measures a proximally 2.5 cm. Both of these masses are located in the upper-outer quadrants. Further workup with ultrasound will be performed for further evaluation. There also appears to be a masslike density in the retroareolar region slightly inferior aspect of the left breast seen on the MLO view. Further workup with ultrasound should be performed. BI/DIAG MAMM W/CAD, BILAT IMPRESSION: There are masses in both breasts and a density in the left breast. Further wor kup with ultrasound will be performed for further evaluation. Please see that report. OVERALL FINAL ASSESSMENT BI-RADS 0: INCOMPLETE - NEED ADDITIONAL IMAGING EVALUATION. RECOMMENDATION: Ultrasound Recommended Additional Recommendation a complete bilateral breast ultrasound should be cons idered due to the density of her breasts. The extremely dense breast tissue that she has does decrease the sensitivity of dwight mography. Small masses could be obscured. A letter with findings and recommendations will be mailed to the patient. Reading Location: [id number]
== END | disposition home or self-care (01) ==
LOC: OPUS 09:18
PROVIDERS: PCP Student in an Organized Health Care Education/Training Program; Referring Provider Obstetrics & Gynecology; Visit Provider Obstetrics & Gynecology
DX: N63.10 Unspecified lump in the right breast, unspecified quadrant (principal); N63.20 Unspecified lump in the left breast, unspecified quadrant
CPT/HCPCS: 76642; 77062; 77066; G0279

== ENCOUNTER → 2025-05-22 | Outpatient (CLI) | payer OTHER, SELFPAY ==
--- OUTSIDE RECORDS SUMMARY | 2025-01-11 10:47 | XMS RPT_ITS ---
Author Name Auto Generated Organization [facility] Care Team Providers Care Chainstitch Elastic Attacher Name Role Phone BIRD RHOADES Attending Unavailable SHAHEEN STEWART Referring Unavailable SHAHEEN STEWART Primary Care Unavailable SHAHEEN STEWART Attending Unavailable SHAHEEN STEWART Primary Care Unavailable ELENA CARMEN Attending Unavailable SELF Referring Unavailable SHAHEEN STEWART Primary Care Unavailable PROBLEMS DATE TYPE CONDITION / CODE ATTENDING STATUS [facility] 01/11/2025 Active Pain in right wr ist / M25.531(ICD-10) BIRD RHOADES Active [facility] 01/11/2025 Active Multiple joint p ain / M25.50(ICD-10) CINTHIA RHOADESITLYN Active [facility] 01/11/2025 Active Myalgia / M79.10(ICD-10) ELOINA RHOADES N Active [facility] 01/11/2025 Active Fatigue, unspeci fied type / R53.83(ICD-10) JFCINTHIA TRAVISITLYN Active [facility] 01/11/2025 Active Scalp itch / L29.9(ICD-10) JFCINTHIAIT KAITLYNN Active [facility] 01/11/2025 Active 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) JF, BIRD Active [facility] 01/11/2025 Active Tremor / R25.1(ICD-10) BIRD RHOADES Active [facility] PROCEDURES No Procedure Records Found RESULTS CNPTOUTREACH Observed: 03/13/2025 12:00 AM Status: COMPLETED Source: [facility] NOLAMACY Gutierrez ([id number]) 1985 F Date Time Provider Department 03/13/25 SHAHEEN STEWART During your visit today, we recorded the following information about you: Allergies As of Date: 03/13/2025 Noted Allergy Reaction NORCO (HYDROCODONE-ACETAMINOPHEN) 05/17/2014 9 - Itching Date Reviewed: 01/11/2025 Reviewed by: Taina Velez RN - Fully Assessed Visit Diagnosis:Encounter for screening mammogram for breast cancer [Z12.31] Order(s):ALEC SCREENING W JIM [[id number]] Order #: [id number] FUTURE Prescriptions as of 04/13/2025 - poqxm-6-duh-bor-kbx-bnff oil 1,050 mg(300 mg -675 mg-75 mg) cap Take 1 capsule by mouth once daily. - TURMERIC ORAL Take by mouth. - minoxidil (LONITEN) 2.5 mg tablet Take 1.5 mg by mouth once daily. Meds Comments as of 11/25/2020: Mutlivitamin and probiotic OTC. November 25, 2020 Diana Bazzi MA Problem List As Of Date 03/13/2025 Noted Resolved Supervision of normal first [Z34.00] 01/06/2012 09/14/2012 Vaginal bleeding in [O46.90] 02/08/2012 09/14/2012 uterine contractions, antepartum [O47.0*02/08/2012 09/14/2012 Irregular menses [N92.6] 11/16/2012 05/08/2014 Adjustment disorder with mixed anxiety and depr*11/17/2012 Fatigue [R53.83] 01/23/2013 05/08/2014 Joint pain [M25.50] 01/23/2013 04/26/2015 Internal hemorrhoids without mention of complic*05/05/2013 05/08/2014 Segmental and somatic dysfunction of rib cage [*09/27/2013 05/08/2014 Head region somatic dysfunction [M99.00] 09/27/2013 04/26/2015 Cervical (neck) region somatic dysfunction [M99*09/27/2013 04/26/2015 Neck pain [M54.2] 09/27/2013 04/26/2015 Headache [R51] 09/27/2013 04/26/2015 Supervision of high risk in third tri*04/26/2015 01/06/2016 complicated by previous recurrent mis*04/26/2015 01/06/2016 Subchorionic hematoma [O41.8X90, O46.8X9] 04/26/2015 01/06/2016 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] 04/26/2015 Rubella non-immune status, antepartum [O09.899,*05/02/2015 01/06/2016 Uterine size date discrepancy [O26.849] 10/02/2015 01/06/2016 Somatic dysfunction of cervical region [M99.01] 04/19/2017 Somatic dysfunction of rib [M99.08] 04/19/2017 Somatic dysfunction of head region [M99.00] 04/19/2017 Neck pain on right side [M54.2] 04/19/2017 Night sweats [R61] 04/19/2017 Bilateral hand pain [M79.641, M79.642] 04/19/2017 Encounter Status:Closed by JEAN, PRODUSER on 04/13/25 PROGRESS Observed: 01/11/2025 11:02 AM Status: COMPLETED Source: [facility] HNO ID: [id number] Author: BIRD RHOADES PA-C Service: ? 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 Referring Provider: Shaheen Stewart [address] [facility] [place] [address] Macy Noel is here today at request of Dr. Shaheen Stewart specifically for consultation of my opinion in regards to the chief complaint listed below. Correspondence will be shared today via the [employer] electronic health record or through regular mail, where applicable. Recording using Mobile Location, IP software for draft documentation of the visit was discussed with the patient/authorized financial services sales representative; all questions welcomed and answered. 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 Macy reports a current pain level of 4 (Generalized). She describes the pain as Aching. The pain is Continuous . Macy is both RF - 11 (01/23/2013) and CCP - 13.5 (03/03/2013) negative. Her most recent DANNY was positive (01/23/2013). Macy reports a 12-year history of intermittent joint pain and swelling, initially noted in 2011 and again in 2015. She describes severe foot pain during these episodes, making ambulation difficult, but denies swelling. She recalls a positive DANNY test during this period, which prompted a rheumatology referral. No formal diagnosis was made at that time. In 2019, she contracted COVID-19 for the first time and has since had it two more times. She questions whether her symptoms could be related to long COVID. She is vaccinated but has not received boosters. In the fall of 2020, she began experiencing hair shedding and scalp pruritus. Hormonal and thyroid evaluations were normal. Given her persistent and significant hair loss, she started minoxidil in January of last year, which has resulted in new hair growth, but the scalp pruritus persists. She denies any visible rashes but describes intense itching, particularly at the base of the scalp, sometimes accompanied by a burning sensation after scratching. She has tried various hair products and treatments without relief. A recent dermatology evaluation was unremarkable, and she received a Kenalog injection one week ago, which provided partial and temporary relief of pruritus. In September of this year, she developed acute severe pain and swelling in the right wrist and thumb, which woke her from sleep. An urgent care visit included an x-ray and a 7-day Medrol dose pack, which alleviated the wrist symptoms and temporarily resolved her scalp pruritus and other joint pains. A subsequent 9-day prednisone taper provided similar temporary relief of scalp itching and neck discomfort. She denies any known trauma or injury preceding the wrist pain. She reports chronic cervical pain and tightness, managed with Biofreeze, massage, client care consultant, TENS, and dry needling. She also notes intermittent pain in the left thumb, which sometimes appears swollen, and a bunion on her left foot causing recent discomfort. She denies any other significant joint swelling or stiffness. She has a lifelong history of tremors, which have worsened recently, affecting her fine motor skills at work. The tremor is bilateral but more pronounced on the right side. Her brother also has a tremor. She experiences positional numbness in her extremities, resolving with position changes, and has noticed her left arm turning purple during exercise without associated weakness or sensory changes. She reports occasional balance problems and memory issues, describing episodes of forgetfulness and brain fog. She denies rashes, photosensitivity, oral ulcers, dysphagia, xerostomia, xerophthalmia, visual changes, chest pain, hemoptysis, hematuria, or hematochezia. She notes mild pitting edema in her legs after 12-hour shifts but denies chronic swelling. She reports urinary urgency without dysuria or bladder pain, with a history of a significant UTI treated successfully. She denies Raynaud's phenomenon, psoriasis, or unintentional weight loss. She has a history of tension headaches managed with massage and Biofreeze; pranolol was ineffective due to hypotension. She reports poor heat tolerance, experiencing fatigue and decreased exercise capacity in hot environments. She describes cyclical night sweats and variable sleep quality, sometimes waking at [id number] but generally able to return to sleep. She has a history of two early miscarriages at 7-9 weeks, both requiring DANDC. She denies a history of blood clots. Surgical history includes wisdom teeth extraction, chalazion removal, and left ring finger chondroma excision with bone grafting. She denies smoking, alcohol, or drug use. She is single with two children, ages 12 and 9. She denies a family history of autoimmune diseases, rheumatoid arthritis, lupus, Crohn's disease, or psoriasis. Recent labs showed a low aldolase level at 3.1, hypergammaglobulinemia in IgG2 and IgG3, and normal IgM at 127. Previous labs included negative DANNY, Chawla antibody, CHISEL GRINDER antibody, and CCP, with normal thyroid function, liver function, iron studies, ferritin, vitamin D, and urinalysis. Pain Evaluation 04/14/2024 10/24/2024 10/25/2024 11/10/202401/1101/11/2025 Pain Evaluation Pain Score 4 4 4 4 4 Location Head Wrist-Right Back-Upper Generalized Description Aching;Dull Aching;Stiffness;Tightness Aching Aching Aching Duration (#) 2 6 6 2 Duration (Timeframe) Hours Days Days Years Frequency Intermittent Intermittent Intermittent Intermittent Continuous Intervention Medication;Heat;Massage Medication;Cold;Exercise;Heat;Splinting Medication;Relaxation;Cold;Exercise;Heat;Massage;Pillow support;Positioning Patient-Entered Data PROMIS Assessments 04/17/2017 04/14/2024 10/24/2024 PROMIS Global Health - (T-Scores - the mean of general population = 50. Five points is a clinically meaningful difference.) Physical T-Score 47.7 47.7 47.7 44.9 Mental T-Score 53.3 53.3 48.3 43.5 Multiple values from one day are sorted in reverse-chronological order 04/14/2024 10/24/2024 01/11/2025 PROMIS CAT Pain Interference PROMIS Pain Interference T-Score (range: 10 - 90) 50 (within normal limits) PROMIS Pain Interference Percentile 50 PROMIS Adult Short Form-Global Health Score (Mental) 48.3 (Very Good) 43.5 (Good) 01/11/2025 PROMIS CAT Fatigue PROMIS Fatigue T-Score 64 (moderate) PROMIS Fatigue Percentile 8 01/11/2025 PROMIS PHYSICAL FUNCTION T-SCORE PROMIS Physical Function T-Score 50 (within normal limits) Physical Function Percentile 50 3 [place] Activities of Daily Living 01/11/2025 9:47 AM Dress self? Without ANY difficulty Get in and out of bed? Without ANY difficulty Walk outdoors? Without ANY difficulty Wash and dry body? Without ANY difficulty Get in and out of car? Without ANY difficulty RAPID 3 Disease Activity Weighed Score Levels: 0 - 1: Near Remission 1.3 - 2.0: Low Severity 2.3 - 4.0: Moderate Severity 4.3 - 10.0: High Severity 01/11/2025 RAPID-3 Weighed Score RAPID 3 Weighed Score 2.33 (Moderate severity ) Review of Systems Review of Systems CONSTITUTION: Negative for: Fever and Recent weight change Heat intolerance R arm turns purple, L arm normal. HEENT: Negative for: Nosebleeds, Mouth sores, Trouble swallowing and Dry mouth RESPIRATORY: Negative for: Cough, Pain with breathing and Coughing up blood GASTROINTESTINAL: Negative for: Melena, Diarrhea, Heartburn and Abdominal pain MUSCULOSKELETAL: Positive for: Arthralgias, Myalgias, Muscle weakness and Joint swelling Negative for: Morning Joint Stiffness NEUROLOGICAL: Positive for: Headaches (Longstanding, tension HERNANDEZ, tried propanolol), Numbness (R arm numb at usually positional. 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 Past Medical History PAST MEDICAL HISTORY Diagnosis Date Abnormal glandular Papanicolaou smear of cervix 2006 Abn. Pap smear (cervix) Hemorrhoid internal Neck pain Tension headache Past Surgical History PAST SURGICAL HISTORY Procedure Laterality Date PAST SURGICAL HISTORY OF RIGHT EYE chalazion removed PAST SURGICAL HISTORY OF wisdom teeth PAST SURGICAL HISTORY OF 05/18/14, 08/2014 DANDC L ring finger Chondroma removal DIP Family History FAMILY HISTORY Problem Relation Age of Onset Cancer Mother SKIN CANCER Stroke Mother Hypertension Father Aneurysm Father Abdominal Aortic other (spina bifida) Brother Cardiomyopathy Brother Arthritis Maternal Grandmother Cancer Maternal Grandmother UTERINE CANCER Diabetes Maternal Grandmother Heart Maternal Grandfather Breast Cancer Paternal Grandmother Stroke Paternal Grandmother Cancer Paternal Grandfather BONE CANCER other (eliecer syndrome) Son No Known RA, SLE, IBD, PsO Social History Social History Tobacco Use Smoking status: Never Smokeless tobacco: Never Vaping Use Vaping status: Never Used Substance Use Topics Alcohol use: No Drug use: No No ETOH No Marijuana Single 2 kids - 12 and 9 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 TURMERIC ORAL Take by mouth. minoxidil (LONITEN) 2.5 mg tablet Take 1.5 mg by mouth once daily. Labs Latest Ref Rng AND Units 05/23/2014 09/14/2014 05/01/2015 09/05/2015 CBC WBC 3.70 - 11.00 k/uL 5.04 10.02 7.78 Hemoglobin 11.5 - 15.5 g/dL 11.7 12.7 12.9 Hemoglobin, [place] 11.5 - 15.5 g/dL 12.6 Hematocrit 36.0 - 46.0 % 34.5 37.4 38.3 Platelet Count 150 - 400 k/uL 263 256 260 Latest Ref Rng AND Units 02/01/2012 01/23/2013 05/13/2018 CMP NA 136 - 145 mmol/L 137 Sodium 132 - 148 mmol/L 139 K 3.5 - 5.1 mmol/L 3.9 Potassium 3.5 - 5.0 mmol/L 4.1 Chloride 98 - 107 MEQ/L 104 103 CO2 21 - 32 MEQ/L 25 27.0 Glucose 74 - 106 MG/DL 78 84 Glucose, [place] 65 - 135 mg/dL 105 BUN 7 - 18 MG/DL 8 10 Creatinine 0.6 - 1.3 MG/DL 0.77 0.85 Calcium 8.5 - 10.1 mg/dL 8.4 Calcium 8.5 - 10.5 mg/dL 8.8 AST 8 - 37 U/L 18 11 ALT 0 - 45 U/L 12 ALT (SGPT) 12 - 78 U/L 15 Alk Phos Total 45 - 117 U/L 39 Alkaline Phosphatase 40 - 150 U/L 59 This result is from an external source. Latest Ref Rng AND Units 03/03/2013 Uric Acid Uric Acid 2.0 - 7.0 mg/dL 3.1 Latest Ref Rng AND Units 03/03/2013 CRP CRP 0.0 - 1.0 mg/dL <0.2 Latest Ref Rng AND Units 03/03/2013 C3, C4 C3 68 - 260 mg/dL 105 C4 12 - 46 mg/dL 27 Latest Ref Rng AND Units 01/23/2013 03/03/2013 RF and CCP Rheumatoid Factor <20 IU/mL 11 CCP Antibody, IgG <20 Units <15 Latest Ref Rng AND Units 10/22/2011 05/01/2015 Hepatitis Screen Hep B Surf Ab Qual Non Reactive Reactive Hep B Surface Ag Negative Negative Latest Ref Rng AND Units 10/22/2011 02/07/2013 TB Screen TB Interpretation No evidence of current or previous infection with Mycobacterium tuberculosis. Test performed by: [facility], [address] [place] [address] CLIA [id number] No evidence of current or previous infection with Mycobacterium tuberculosis. Test performed by: [facility], [address] [place] [address] CLIA [id number] TB Result Negative Negative Negative Latest Ref Rng AND Units 01/23/2013 01/26/2013 03/03/2013 Antibodies DANNY NEGAT Positive DANNY Titer NEGAT 1:160 DANNY Pattern Atypical speckled DNA Antibody <30 IU/mL <12 Anti-Sm <1.0 AI <0.2 Ribosomal CHISEL GRINDER Ab <1.0 AI <0.2 Anti-SSA <1.0 AI <0.2 Anti-SSB <1.0 AI <0.2 Scl-70 Abs, EIA <1.0 AI 1.7 Latest Ref Rng AND Units 10/14/2015 11/01/2015 11/06/2015 11/14/2015 Urinalysis Protein, Urine Neg mg/dL negative negative negative Neg Imaging XR Wrist 10/19/24 - no acute radiographic fining of wrist Last XR Chest - Impression Only No resulted procedures found. Health Maintenance Current Immunizations Reviewed on 05/11/2016 Name Date COVID-19 vaccine, monovalent (MODERNA) 07/04/2021, 06/06/2021 influenza (IIV3) vaccine 05/27/2014 influenza (IIV4) vaccine 05/13/2015 measles mumps rubella (MMR) vaccine 11/17/2015 Physical Exam VITAL SIGNS: BP 137/83 Pulse 104 Resp 17 Wt 128 lb (58.1kg) SpO2 98% LMP 11/06/2024 GENERAL APPEARANCE: Well groomed. Alert and oriented x 3. In no distress. SKIN: No rash, skin thickening, nodules, or discoloration. Flushing of the skin in neck and chest noted. No malar rash. Scalp with full hair, no scaling or obvious rash in area of scalp pruritus. No visible PsO patches/plaques. EYES: normal conjunctiva HENT: Normal external examination of the ears and nose, lips, oropharynx and tongue. No oropharyngeal lesions, exudate, or sores. Dry Mucous membranes NECK: No mass or asymmetry. No LAD RESPIRATORY: Normal respiratory effort. Clear to auscultation CARDIOVASCULAR: Heart RRR without gallop, murmur, or rub NEUROLOGIC: Sensory exam normal. MUSCULOSKELETAL EXAMINATION: Soft tissue tender points: None Motor exam: Normal bulk and tone. Spine: Cervical spine: No visible abnormalities. Mild discomfort to palpation of paraspinal muscles and trapezius with muscle spasm noted. No C spine tenderness. Thoracic spine: No visible abnormalities. No tenderness to palpation. Lumbar spine: No visible abnormalities. No tenderness to palpation SI Joints: No tenderness to palpation. Upper extremities: Shoulders: Full ROM in all jaquez, no tenderness to palpation. No swelling or effusion. Elbows: Full ROM in flexion and extension. No swelling or effusion. No tenderness to palpation to the joint line, olecranon, medial or lateral epicondyles. Wrists: Full ROM in all jaquez. No swelling or synovitis. No tenderness to palpation Hands: Full ROM in flexion and extension. 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 No swelling or synovitis along the MCPs, PIPs, and DIPs. No tenderness along the MCPs, PIPs, and DIPs. Lower extremities: Hips: No tenderness to palpation along greater trochanter, gluteal fossa, or piriformis. Knees: Full ROM in flexion and extension. No swelling or effusion. No tenderness to palpation. Ankles: Full ROM in all jaquez. No swelling or effusion. No tenderness to palpation along the joint line, medial/lateral malleolus, ATFL, PTFL, CFL, or Achilles Tendon. Feet: Full ROM in toe flexion/extension. No effusion. No tenderness to palpation. No evidence of MTP swelling. + bunion deformity in L great toe MTP joint Impression # Pain in right wrist (M25.531) # Multiple joint pain (M25.50) # Myalgia (M79.10) History of Acute onset of severe pain and swelling in the right wrist and thumb area, initially managed with a 7-day Medrol dose pack, which provided significant relief. Symptoms are completely resolved today Aso with Intermittent joint pain reported in cervical region, left thumb, and feet. No significant swelling or tenderness noted on examination. Previous episodes of joint pain have been transient and resolved with short courses of prednisone. Or they are low severity on a daily basis. She has history of low positive DANNY test, most recently this was negative. Systemic symptoms include diffuse hair loss (improved on minoxidil), hand tremors (with familial history). She lacks evidence of fevers, cytopenias, pericardial/pleural effusions, renal involvement (recent UA normal, no proteinuria, normal creatinine). She doesn't met ACR diagnostic criterea for SLE. Inflammatory arthritis cannot be completely eliminated as a possible dignosis given the acute onset of joint pain and swelling without clear inciting event. Discussed however if she remains asymptomatic of joint pain and stiffness between episodes, then treatment for this type of condition isn't indicated. She espresses her main concern is Scalp pruitius (see below) Offered to repeat dsDNA, C3/C4, lupus anticoagulant (history of 2 early miscarriages) panel, she declined at the time of the visit. Will notify via [employer] that they are available if she changes her mind and wants them done at a later time. However I'm not convincd the scalp pruritus is related to a rheumatologic cause. - Monitor for any new or worsening joint pain. - Advised patient to return for evaluation during acute episodes of joint swelling and pain. - Offered to Follow ever 6-12 months for new rheum symptoms. She defers today # Fatigue, unspecified type (R53.83) Chronic fatigue reported, with occasional disturbances in sleep. No specific etiology identified. - Monitor sleep patterns and fatigue levels. - Advised patient to maintain a regular sleep schedule. - Follow with PCP, no clear rheum etiology at this time # Scalp itch (L29.9) Chronic scalp pruritus with no visible rash. Symptoms temporarily alleviated by prednisone and Kenalog injection. Dermatology evaluation revealed no abnormalities. I wonder if there could be a neuropathic etiology of this? Either related to Cervical DDD vs. Small fiber neuropathy. - Follow-up with primary care for management. - maybe Discuss with PCP trial of Gabapentin for scalp dysesthesia. Versus further neurology workup. 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 No clinical signs of immunodeficiency. Not a clear explanation for elevated IgG levels - Monitor immunoglobulin levels. - No immediate intervention required. Plan As Explained to Patient via After visit Summary Orders this visit: Office Visit on 01/11/25 CONSULT TO RHEUM/IMMUN DISEASE ynewn-8-soc-giw-jjw-mbid oil 1,050 mg(300 mg -675 mg-75 mg) cap - Contact your primary care provider to discuss a trial of gabapentin (often used for nerve-type itching) to see if it helps your scalp itch and related sensations. - Schedule a rheumatology follow-up appointment in about 6-12 months for routine monitoring of your symptoms and labs. - Arrange to have inflammatory markers (sedimentation rate, CRP), complement levels, and double-stranded DNA rechecked at your next lab visit. - Call or come in sooner for a same-day rheumatology visit if you develop another acute flare of joint swelling and pain. Follow up 1 year, sooner PRN for joint pain and swelling I spent a total of 65 minutes on the date of the service which included preparing to see the patient, [id number] patient care, completing clinical documentation, obtaining and/or reviewing separately obtained history, performing a medically appropriate examination, counseling and educating the patient/family/caregiver, ordering medications, tests, or procedures, and communicating results to the patient/family/caregiver. Bird Rhoades PA-C Rheumatology Date: January 11, 2025 Time: 4:11 PM CNOV Observed: 01/11/2025 11:00 AM Status: COMPLETED Source: [facility] Office Visit ([facility]) MACY NOEL ([id number]) 1985 F Date Time Provider Department 01/11/25 11:00 AM BIRD RHOADES WSTR During your visit today, we recorded the following information about you: Pulse Respiration Blood pressure Weight 104/minute 17/minute 137/83 58.1 kg Bird Rhoades PA-C 01/11/2025 4:13 PM Signed Rheumatology CONSULTATION Date of Service: 01/11/2025 Patient: Macy Noel Medical Record: [id number] Primary Care Physician: Shaheen Stewart DO Last Rheumatology visit: None at [facility] Referring Provider: Shaheen Stewart [address] [facility] [address] Mayc Noel is here today at request of Dr. Shaheen Stewart specifically for consultation of my opinion in regards to the chief complaint listed below. Correspondence will be shared today via the [employer] electronic health record or through regular mail, where applicable. Recording using Mobile Location, IP software for draft documentation of the visit was discussed with the patient/authorized financial services sales representative; all questions welcomed and answered. 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 Macy reports a current pain level of 4 (Generalized). She describes the pain as Aching. The pain is Continuous . Macy is both RF - 11 (01/23/2013) and CCP - 13.5 (03/03/2013) negative. Her most recent DANNY was positive (01/23/2013). Macy reports a 12-year history of intermittent joint pain and swelling, initially noted in 2011 and again in 2016. She describes severe foot pain during these episodes, making ambulation difficult, but denies swelling. She recalls a positive DANNY test during this period, which prompted a rheumatology referral. No formal diagnosis was made at that time. In 2019, she contracted COVID-19 for the first time and has since had it two more times. She questions whether her symptoms could be related to long COVID. She is vaccinated but has not received boosters. In the fall of 2020, she began experiencing hair shedding and scalp pruritus. Hormonal and thyroid evaluations were normal. Given her persistent and significant hair loss, she started minoxidil in January of last year, which has resulted in new hair growth, but the scalp pruritus persists. She denies any visible rashes but describes intense itching, particularly at the base of the scalp, sometimes accompanied by a burning sensation after scratching. She has tried various hair products and treatments without relief. A recent dermatology evaluation was unremarkable, and she received a Kenalog injection one week ago, which provided partial and temporary relief of pruritus. In September of this year, she developed acute severe pain and swelling in the right wrist and thumb, which woke her from sleep. An urgent care visit included an x-ray and a 7-day Medrol dose pack, which alleviated the wrist symptoms and temporarily resolved her scalp pruritus and other joint pains. A subsequent 9-day prednisone taper provided similar temporary relief of scalp itching and neck discomfort. She denies any known trauma or injury preceding the wrist pain. She reports chronic cervical pain and tightness, managed with Biofreeze, massage, client care consultant, TENS, and dry needling. She also notes intermittent pain in the left thumb, which sometimes appears swollen, and a bunion on her left foot causing recent discomfort. She denies any other significant joint swelling or stiffness. She has a lifelong history of tremors, which have worsened recently, affecting her fine motor skills at work. The tremor is bilateral but more pronounced on the right side. Her brother also has a tremor. She experiences positional numbness in her extremities, resolving with position changes, and has noticed her left arm turning purple during exercise without associated weakness or sensory changes. She reports occasional balance problems and memory issues, describing episodes of forgetfulness and brain fog. She denies rashes, photosensitivity, oral ulcers, dysphagia, xerostomia, xerophthalmia, visual changes, chest pain, hemoptysis, hematuria, or hematochezia. She notes mild pitting edema in her legs after 12-hour shifts but denies chronic swelling. She reports urinary urgency without dysuria or bladder pain, with a history of a significant UTI treated successfully. She denies Raynaud's phenomenon, psoriasis, or unintentional weight loss. She has a history of tension headaches managed with massage and Biofreeze; pranolol was ineffective due to hypotension. She reports poor heat tolerance, experiencing fatigue and decreased exercise capacity in hot environments. She describes cyclical night sweats and variable sleep quality, sometimes waking at [id number] but generally able to return to sleep. She has a history of two early miscarriages at 7-9 weeks, both requiring DANDC. She denies a history of blood clots. Surgical history includes wisdom teeth extraction, chalazion removal, and left ring finger chondroma excision with bone grafting. She denies smoking, alcohol, or drug use. She is single with two children, ages 12 and 9. She denies a family history of autoimmune diseases, rheumatoid arthritis, lupus, Crohn's disease, or psoriasis. Recent labs showed a low aldolase level at 3.1, hypergammaglobulinemia in IgG2 and IgG3, and normal IgM at 127. Previous labs included negative DANNY, Chawla antibody, CHISEL GRINDER antibody, and CCP, with normal thyroid function, liver function, iron studies, ferritin, vitamin D, and urinalysis. Pain Evaluation 04/14/2024 10/24/2024 10/25/2024 11/10/2024 01/11/2025 Pain Evaluation Pain Score 4 4 4 4 4 Location Head Wrist-Right Back-Upper Generalized Description Aching;Dull Aching;Stiffness;Tightness Aching Aching Aching Duration (#) 2 6 6 2 Duration (Timeframe) Hours Days Days Years Frequency Intermittent Intermittent Intermittent Intermittent Continuous Intervention Medication;Heat;Massage Medication;Cold;Exercise;Heat;Splinting Medication;Relaxation;Cold;Exercise;Heat;Massage;Pillow support;Positioning Patient-Entered Data PROMIS Assessments 04/17/2017 04/14/2024 10/24/2024 PROMIS Global Health - (T-Scores - the mean of general population = 50. Five points is a clinically meaningful difference.) Physical T-Score 47.7 47.7 47.7 44.9 Mental T-Score 53.3 53.3 48.3 43.5 Multiple values from one day are sorted in reverse-chronological order 04/14/2024 10/24/2024 01/11/2025 PROMIS CAT Pain Interference PROMIS Pain Interference T-Score (range: 10 - 90) 50 (within normal limits) PROMIS Pain Interference Percentile 50 PROMIS Adult Short Form-Global Health Score (Mental) 48.3 (Very Good) 43.5 (Good) 01/11/2025 PROMIS CAT Fatigue PROMIS Fatigue T-Score 64 (moderate) PROMIS Fatigue Percentile 8 01/11/2025 PROMIS PHYSICAL FUNCTION T-SCORE PROMIS Physical Function T-Score 50 (within normal limits) Physical Function Percentile 50 RAPID 3 [place] Activities of Daily Living 01/11/2025 9:47 AM Dress self? Without ANY difficulty Get in and out of bed? Without ANY difficulty Walk outdoors? Without ANY difficulty Wash and dry body? Without ANY difficulty Get in and out of car? Without ANY difficulty RAPID 3 Disease Activity Weighed Score Levels: 0 - 1: Near Remission 1.3 - 2.0: Low Severity 2.3 - 4.0: Moderate Severity 4.3 - 10.0: High Severity 01/11/2025 RAPID-3 Weighed Score RAPID 3 Weighed Score 2.33 (Moderate severity ) Review of Systems Review of Systems CONSTITUTION: Negative for: Fever and Recent weight change Heat intolerance R arm turns purple, L arm normal. HEENT: Negative for: Nosebleeds, Mouth sores, Trouble swallowing and Dry mouth RESPIRATORY: Negative for: Cough, Pain with breathing and Coughing up blood GASTROINTESTINAL: Negative for: Melena, Diarrhea, Heartburn and Abdominal pain MUSCULOSKELETAL: Positive for: Arthralgias, Myalgias, Muscle weakness and Joint swelling Negative for: Morning Joint Stiffness NEUROLOGICAL: Positive for: Headaches (Longstanding, tension HERNANDEZ, tried propanolol), Numbness (R arm numb at usually positional. 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 Past Medical History PAST MEDICAL HISTORY Diagnosis Date Abnormal glandular Papanicolaou smear of cervix 2005 Abn. Pap smear (cervix) Hemorrhoid internal Neck pain Tension headache Past Surgical History PAST SURGICAL HISTORY Procedure Laterality Date PAST SURGICAL HISTORY OF RIGHT EYE chalazion removed PAST SURGICAL HISTORY OF wisdom teeth PAST SURGICAL HISTORY OF 05/18/14, 08/2014 DANDC L ring finger Chondroma removal DIP Family History FAMILY HISTORY Problem Relation Age of Onset Cancer Mother SKIN CANCER Stroke Mother Hypertension Father Aneurysm Father Abdominal Aortic other (spina bifida) Brother Cardiomyopathy Brother Arthritis Maternal Grandmother Cancer Maternal Grandmother UTERINE CANCER Diabetes Maternal Grandmother Heart Maternal Grandfather Breast Cancer Paternal Grandmother Stroke Paternal Grandmother Cancer Paternal Grandfather BONE CANCER other (eliecer syndrome) Son No Known RA, SLE, IBD, PsO Social History Social History Tobacco Use Smoking status: Never Smokeless tobacco: Never Vaping Use Vaping status: Never Used Substance Use Topics Alcohol use: No Drug use: No No ETOH No Marijuana Single 2 kids - 12 and 9 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 TURMERIC ORAL Take by mouth. minoxidil (LONITEN) 2.5 mg tablet Take 1.5 mg by mouth once daily. Labs Latest Ref Rng AND Units 05/23/2014 09/14/2014 05/01/2015 09/05/2015 CBC WBC 3.70 - 11.00 k/uL 5.04 10.02 7.78 Hemoglobin 11.5 - 15.5 g/dL 11.7 12.7 12.9 Hemoglobin, [place] 11.5 - 15.5 g/dL 12.6 Hematocrit 36.0 - 46.0 % 34.5 37.4 38.3 Platelet Count 150 - 400 k/uL 263 256 260 Latest Ref Rng AND Units 02/01/2012 01/23/2013 05/13/2018 CMP NA 136 - 145 mmol/L 137 Sodium 132 - 148 mmol/L 139 K 3.5 - 5.1 mmol/L 3.9 Potassium 3.5 - 5.0 mmol/L 4.1 Chloride 98 - 107 MEQ/L 104 103 CO2 21 - 32 MEQ/L 25 27.0 Glucose 74 - 106 MG/DL 78 84 Glucose, [place] 65 - 135 mg/dL 105 BUN 7 - 18 MG/DL 8 10 Creatinine 0.6 - 1.3 MG/DL 0.77 0.85 Calcium 8.5 - 10.1 mg/dL 8.4 Calcium 8.5 - 10.5 mg/dL 8.8 AST 8 - 37 U/L 18 11 ALT 0 - 45 U/L 12 ALT (SGPT) 12 - 78 U/L 15 Alk Phos Total 45 - 117 U/L 39 Alkaline Phosphatase 40 - 150 U/L 59 This result is from an external source. Latest Ref Rng AND Units 03/03/2013 Uric Acid Uric Acid 2.0 - 7.0 mg/dL 3.1 Latest Ref Rng AND Units 03/03/2013 CRP CRP 0.0 - 1.0 mg/dL <0.2 Latest Ref Rng AND Units 03/03/2013 C3, C4 C3 68 - 260 mg/dL 105 C4 12 - 46 mg/dL 27 Latest Ref Rng AND Units 01/23/2013 03/03/2013 RF and CCP Rheumatoid Factor <20 IU/mL 11 CCP Antibody, IgG <20 Units <15 Latest Ref Rng AND Units 10/22/2011 05/01/2015 Hepatitis Screen Hep B Surf Ab Qual Non Reactive Reactive Hep B Surface Ag Negative Negative Latest Ref Rng AND Units 10/22/2011 02/07/2013 TB Screen TB Interpretation No evidence of current or previous infection with Mycobacterium tuberculosis. Test performed by: [facility], [address] [id number] CLIA [id number] No evidence of current or previous infection with Mycobacterium tuberculosis. Test performed by: [facility], [address] [place] [address] CLIA [id number] TB Result Negative Negative Negative Latest Ref Rng AND Units 01/23/2013 01/26/2013 03/03/2013 Antibodies DANNY NEGAT Positive DANNY Titer NEGAT 1:160 DANNY Pattern Atypical speckled DNA Antibody <30 IU/mL <12 Anti-Sm <1.0 AI <0.2 Ribosomal CHISEL GRINDER Ab <1.0 AI <0.2 Anti-SSA <1.0 AI <0.2 Anti-SSB <1.0 AI <0.2 Scl-70 Abs, EIA <1.0 AI 1.7 Latest Ref Rng AND Units 10/14/2015 11/01/2015 11/06/2015 11/14/2015 Urinalysis Protein, Urine Neg mg/dL negative negative negative Neg Imaging XR Wrist 10/19/24 - no acute radiographic fining of wrist Last XR Chest - Impression Only No resulted procedures found. Health Maintenance Current Immunizations Reviewed on 05/11/2016 Name Date COVID-19 vaccine, monovalent (MODERNA) 07/04/2021, 06/06/2021 influenza (IIV3) vaccine 05/27/2014 influenza (IIV4) vaccine 05/13/2015 measles mumps rubella (MMR) vaccine 11/17/2015 Physical Exam VITAL SIGNS: BP 137/83 Pulse 104 Resp 17 Wt 128 lb (58.1kg) SpO2 98% LMP 11/06/2024 GENERAL APPEARANCE: Well groomed. Alert and oriented x 3. In no distress. SKIN: No rash, skin thickening, nodules, or discoloration. Flushing of the skin in neck and chest noted. No malar rash. Scalp with full hair, no scaling or obvious rash in area of scalp pruritus. No visible PsO patches/plaques. EYES: normal conjunctiva HENT: Normal external examination of the ears and nose, lips, oropharynx and tongue. No oropharyngeal lesions, exudate, or sores. Dry Mucous membranes NECK: No mass or asymmetry. No LAD RESPIRATORY: Normal respiratory effort. Clear to auscultation CARDIOVASCULAR: Heart RRR without gallop, murmur, or rub NEUROLOGIC: Sensory exam normal. MUSCULOSKELETAL EXAMINATION: Soft tissue tender points: None Motor exam: Normal bulk and tone. Spine: Cervical spine: No visible abnormalities. Mild discomfort to palpation of paraspinal muscles and trapezius with muscle spasm noted. No C spine tenderness. Thoracic spine: No visible abnormalities. No tenderness to palpation. Lumbar spine: No visible abnormalities. No tenderness to palpation SI Joints: No tenderness to palpation. Upper extremities: Shoulders: Full ROM in all jaquez, no tenderness to palpation. No swelling or effusion. Elbows: Full ROM in flexion and extension. No swelling or effusion. No tenderness to palpation to the joint line, olecranon, medial or lateral epicondyles. Wrists: Full ROM in all jaquez. No swelling or synovitis. No tenderness to palpation Hands: Full ROM in flexion and extension. 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 No swelling or synovitis along the MCPs, PIPs, and DIPs. No tenderness along the MCPs, PIPs, and DIPs. Lower extremities: Hips: No tenderness to palpation along greater trochanter, gluteal fossa, or piriformis. Knees: Full ROM in flexion and extension. No swelling or effusion. No tenderness to palpation. Ankles: Full ROM in all jaquez. No swelling or effusion. No tenderness to palpation along the joint line, medial/lateral malleolus, ATFL, PTFL, CFL, or Achilles Tendon. Feet: Full ROM in toe flexion/extension. No effusion. No tenderness to palpation. No evidence of MTP swelling. + bunion deformity in L great toe MTP joint Impression # Pain in right wrist (M25.531) # Multiple joint pain (M25.50) # Myalgia (M79.10) History of Acute onset of severe pain and swelling in the right wrist and thumb area, initially managed with a 7-day Medrol dose pack, which provided significant relief. Symptoms are completely resolved today Aso with Intermittent joint pain reported in cervical region, left thumb, and feet. No significant swelling or tenderness noted on examination. Previous episodes of joint pain have been transient and resolved with short courses of prednisone. Or they are low severity on a daily basis. She has history of low positive DANNY test, most recently this was negative. Systemic symptoms include diffuse hair loss (improved on minoxidil), hand tremors (with familial history). She lacks evidence of fevers, cytopenias, pericardial/pleural effusions, renal involvement (recent UA normal, no proteinuria, normal creatinine). She doesn't met ACR diagnostic criterea for SLE. Inflammatory arthritis cannot be completely eliminated as a possible dignosis given the acute onset of joint pain and swelling without clear inciting event. Discussed however if she remains asymptomatic of joint pain and stiffness between episodes, then treatment for this type of condition isn't indicated. She espresses her main concern is Scalp pruitius (see below) Offered to repeat dsDNA, C3/C4, lupus anticoagulant (history of 2 early miscarriages) panel, she declined at the time of the visit. Will notify via [employer] that they are available if she changes her mind and wants them done at a later time. However I'm not convincd the scalp pruritus is related to a rheumatologic cause. - Monitor for any new or worsening joint pain. - Advised patient to return for evaluation during acute episodes of joint swelling and pain. - Offered to Follow ever 6-12 months for new rheum symptoms. She defers today # Fatigue, unspecified type (R53.83) Chronic fatigue reported, with occasional disturbances in sleep. No specific etiology identified. - Monitor sleep patterns and fatigue levels. - Advised patient to maintain a regular sleep schedule. - Follow with PCP, no clear rheum etiology at this time # Scalp itch (L29.9) Chronic scalp pruritus with no visible rash. Symptoms temporarily alleviated by prednisone and Kenalog injection. Dermatology evaluation revealed no abnormalities. I wonder if there could be a neuropathic etiology of this? Either related to Cervical DDD vs. Small fiber neuropathy. - Follow-up with primary care for management. - maybe Discuss with PCP trial of Gabapentin for scalp dysesthesia. Versus further neurology workup. 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 No clinical signs of immunodeficiency. Not a clear explanation for elevated IgG levels - Monitor immunoglobulin levels. - No immediate intervention required. Plan As Explained to Patient via After visit Summary Orders this visit: Office Visit on 01/11/25 CONSULT TO RHEUM/IMMUN DISEASE pgqgr-3-ftb-xpq-qgr-fwrb oil 1,050 mg(300 mg -675 mg-75 mg) cap - Contact your primary care provider to discuss a trial of gabapentin (often used for nerve-type itching) to see if it helps your scalp itch and related sensations. - Schedule a rheumatology follow-up appointment in about 6-12 months for routine monitoring of your symptoms and labs. - Arrange to have inflammatory markers (sedimentation rate, CRP), complement levels, and double-stranded DNA rechecked at your next lab visit. - Call or come in sooner for a same-day rheumatology visit if you develop another acute flare of joint swelling and pain. Follow up 1 year, sooner PRN for joint pain and swelling I spent a total of 65 minutes on the date of the service which included preparing to see the patient, [id number] patient care, completing clinical documentation, obtaining and/or reviewing separately obtained history, performing a medically appropriate examination, counseling and educating the patient/family/caregiver, ordering medications, tests, or procedures, and communicating results to the patient/family/caregiver. Bird Rhoades PA-C Rheumatology Date: January 11, 2025 Time: 4:11 PM Referring Provider: SHAHEEN STEWART [[id number]] Allergies As of Date: 01/11/2025 Noted Allergy Reaction NORCO (HYDROCODONE-ACETAMINOPHEN) 05/17/2014 9 - Itching Date Reviewed: 01/11/2025 Reviewed by: Taina Velez RN - Fully Assessed Reason for Visit: Joint Pain [238] Fatigue [46] Primary Visit Diagnosis:Pain in right wrist [M25.531] Other Visit Diagnoses:Multiple joint pain [M25.50] Myalgia [M79.10] Fatigue, unspecified type [R53.83] Scalp itch [L29.9] Hypergammaglobulinemia [D89.2] Tremor [R25.1] Order(s):CONSULT TO RHEUM/IMMUN DISEASE [9039] Order #: [id number]: [address] [SQLUPUSP] Order #: [id number] FUTURE DNA AB DS + CONF BLD [SQDNA] Order #: [id number] FUTURE C3 COMPLEMENT [FHQ6BPBN] Order #: [id number] FUTURE C4 COMPLEMENT [DAI2BRLX] Order #: [id number] FUTURE SEDIMENTATION RATE, WESTERGREN [SQWSR] Order #: [id number] FUTURE C-REACTIVE PROTEIN [SQCRP] Order #: [id number] FUTURE Prescriptions as of 01/11/2025 - nidms-8-kiu-qhx-wud-gnvv oil 1,050 mg(300 mg -675 mg-75 mg) cap Take 1 capsule by mouth once daily. - TURMERIC ORAL Take by mouth. - minoxidil (LONITEN) 2.5 mg tablet Take 1.5 mg by mouth once daily. Meds Comments as of 11/25/2020: Mutlivitamin and probiotic OTC. November 25, 2020 Diana Bazzi MA Problem List As Of Date 01/11/2025 Noted Resolved Supervision of normal first [Z34.00] 01/06/2012 09/14/2012 Vaginal bleeding in [O46.90] 02/08/2012 09/14/2012 uterine contractions, antepartum [O47.0*02/08/2012 09/14/2012 Irregular menses [N92.6] 11/16/2012 05/08/2014 Adjustment disorder with mixed anxiety and depr*11/17/2012 Fatigue [R53.83] 01/23/2013 05/08/2014 Joint pain [M25.50] 01/23/2013 04/26/2015 Internal hemorrhoids without mention of complic*05/05/2013 05/08/2014 Segmental and somatic dysfunction of rib cage [*09/27/2013 05/08/2014 Head region somatic dysfunction [M99.00] 09/27/2013 04/26/2015 Cervical (neck) region somatic dysfunction [M99*09/27/2013 04/26/2015 Neck pain [M54.2] 09/27/2013 04/26/2015 Headache [R51] 09/27/2013 04/26/2015 Supervision of high risk in third tri*04/26/2015 01/06/2016 complicated by previous recurrent mis*04/26/2015 01/06/2016 Subchorionic hematoma [O41.8X90, O46.8X9] 04/26/2015 01/06/2016 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] 04/26/2015 Rubella non-immune status, antepartum [O09.899,*05/02/2015 01/06/2016 Uterine size date discrepancy [O26.849] 10/02/2015 01/06/2016 Somatic dysfunction of cervical region [M99.01] 04/19/2017 Somatic dysfunction of rib [M99.08] 04/19/2017 Somatic dysfunction of head region [M99.00] 04/19/2017 Neck pain on right side [M54.2] 04/19/2017 Night sweats [R61] 04/19/2017 Bilateral hand pain [M79.641, M79.642] 04/19/2017 Letter Text Encounter Status:Closed by BIRD RHOADES on 01/11/25 BRYON Observed: 12/01/2024 12:00 AM Status: COMPLETED [facility] MACY NOEL ([id number]) 1985 F Date Time Provider Department 12/01/24 SHAHEEN STEWART During your visit today, we recorded the following information about you: Aline Segura LPN 12/01/2024 3:38 PM Signed Lab results received and placed on Dr. Stewart's desk. Gillian Murillo MA 12/15/2024 8:04 AM Signed Additional labs placed on JG desk CHET Bishop Susan LPN 12/27/2024 4:22 PM Signed Pt informed No Immune deficiency noted on labs Allergies As of Date: 12/01/2024 Noted Allergy Reaction NORCO (HYDROCODONE-ACETAMINOPHEN) 05/17/2014 9 - Itching Date Reviewed: 11/10/2024 Reviewed by: Aline Segura LPN - Fully Assessed Prescriptions as of 12/27/2024 - TURMERIC ORAL Take by mouth. - minoxidil (LONITEN) 2.5 mg tablet Take 1.5 mg by mouth once daily. Meds Comments as of 11/25/2020: Mutlivitamin and probiotic OTC. November 25, 2020 Diana Bazzi MA Problem List As Of Date 12/01/2024 Noted Resolved Supervision of normal first [Z34.00] 01/06/2012 09/14/2012 Vaginal bleeding in [O46.90] 02/08/2012 09/14/2012 uterine contractions, antepartum [O47.0*02/08/2012 09/14/2012 Irregular menses [N92.6] 11/16/2012 05/08/2014 Adjustment disorder with mixed anxiety and depr*11/17/2012 Fatigue [R53.83] 01/23/2013 05/08/2014 Joint pain [M25.50] 01/23/2013 04/26/2015 Internal hemorrhoids without mention of complic*05/05/2013 05/08/2014 Segmental and somatic dysfunction of rib cage [*09/27/2013 05/08/2014 Head region somatic dysfunction [M99.00] 09/27/2013 04/26/2015 Cervical (neck) region somatic dysfunction [M99*09/27/2013 04/26/2015 Neck pain [M54.2] 09/27/2013 04/26/2015 Headache [R51] 09/27/2013 04/26/2015 Supervision of high risk in third tri*04/26/2015 01/06/2016 complicated by previous recurrent mis*04/26/2015 01/06/2016 Subchorionic hematoma [O41.8X90, O46.8X9] 04/26/2015 01/06/2016 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] 04/26/2015 Rubella non-immune status, antepartum [O09.899,*05/02/2015 01/06/2016 Uterine size date discrepancy [O26.849] 10/02/2015 01/06/2016 Somatic dysfunction of cervical region [M99.01] 04/19/2017 Somatic dysfunction of rib [M99.08] 04/19/2017 Somatic dysfunction of head region [M99.00] 04/19/2017 Neck pain on right side [M54.2] 04/19/2017 Night sweats [R61] 04/19/2017 Bilateral hand pain [M79.641, M79.642] 04/19/2017 Encounter Status:Closed by ALINE SEGURA LPN on 12/27/24 PROGRESS Observed: 11/10/2024 11:58 AM Status: COMPLETED Source: [facility] ID: [id number] Author: SHAHEEN STEWART, DO Service: ? Author Type: Physician Type: Progress Notes Filed: 11/15/2024 09:04 Note Text: CC: Macy Noel is a 39 year old female who presents to the office for follow up HPI: Patient states that she has been having a lot of Joint pains, present 3 months post after of her sons. This was years ago, starting 12 years ago after of her last son. Covid Jun 2020, left partner 10/2020. Was in an apartment after this in 10/2020 and got covid 19 infection for a 2nd time. Then she was vaccinated with covid 19 infection Since then she has had scalp itching symptoms in Fall 2021- lower scalp area and hair line. She was tried on ketoconazole topical for scalp. Also increased itching in axillary area and groin and pubic areas. Was no longer able to tolerate compression stockings due to intense itching behind her knees. Was getting visible fluid retention symptoms in her lower legs. Started exercising at that time- was only 98 lbs at that time Joint pains- Was having some thoracic back pain and myalgias- was stretching and biofreeze and NSAIDs orally Moved to a different apartment and started having hair loss- thought related to a different change with well water from city water and also thought needed to change her pillow case and hairbrush. She was dating another partner- diagnosed with chlamydia- treated with antibiotics. But her partner re infected her and she was treated a 2nd time. She has noticed a decreased immune system response- had URIs and BV infections. February 2024 had her wellness visit with [facility] and she was started on OCP but had 2 episodes of blurred vision and found to have elevated blood pressure. She stopped the OCPs and then her BLOOD PRESSURE returned to normal- didn't need to be on HTN medications. Had symptoms of urinary urgency for 2 months and was eventually tested for UA/urine culture and found to have 100,000 ecoli CFU. Was treated with macrobid. Had labs in Apr 2024 for inflammatory labs and RF and CCP and DANNY which were normal Was then concerned that her scalp symptoms were potentially neurologic symptoms instead of skin symptoms. 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 Was seen in Urgent care- provided her with 6 days of steroids and put in thumb wrist splint for 10 days. After 2 days of steroids, her neck and thoracic back pain and her scalp itching were all relieved. Also was then able to shave her armpits and her axilla was not itching. Finished the prednisone taper of medication and then seen by [facility] on 10/25 and she was just starting again to have itching and neck pain increased again. She was retreated with 2nd course of steroid taper and the symptoms resolved again- finished this taper and her symptoms came back 3 days later. PAST MEDICAL HISTORY Diagnosis Date Abnormal glandular Papanicolaou smear of cervix 2005 Abn. Pap smear (cervix) Hemorrhoid internal Neck pain Tension headache PAST SURGICAL HISTORY Procedure Laterality Date PAST SURGICAL HISTORY OF RIGHT EYE chalazion removed PAST SURGICAL HISTORY OF wisdom teeth PAST SURGICAL HISTORY OF 05/18/14, 08/2014 [facility] Current Outpatient Medications Medication Sig TURMERIC ORAL Take by mouth. minoxidil (LONITEN) 2.5 mg tablet Take 1.5 mg by mouth once daily. No current facility-administered medications for this visit. ALLERGIES Allergen Reactions [place] [Hydrocodone-* Itching Social History Tobacco Use Smoking status: Never Smokeless tobacco: Never Substance Use Topics Alcohol use: No Drug use: No ROS: See HPI PE: BP 128/80 Pulse 64 Temp (Src) 97 (Right Tympanic) Resp 12 Wt 129 lb (58.5kg) LMP 11/06/2024 Gen: AANDOX3, NAD, non-toxic appearing HEENT: PERRLA, EOMs intact b/l, nares without drainage, pharynx without erythema, exudate, lesions, or drainage. Uvula midline. Neck: No LAD, no thyromegaly, no meningismus. CV: RRR, no murmur Lungs: CTA b/l, no wheezing Skin: No rashes, lesions, or wounds on exposed skin. Appears fatigued No obvious joint synovitis signs Some pain with wrist flexion and extension No obvious skin changes of the scalp No edema, normal pulses ASSESSMENT/PLAN: 1. E. coli UTI - ICD9: 599.0, 041.49, ICD10: N39.0, B96.20 (primary diagnosis) Check to make sure this is cleared from previous infection - Patient education for prevention given - URINALYSIS, WITH MICROSCOPIC - BACTERIAL CULTURE, URINE 2. Multiple joint pain - ICD9: 719.49, ICD10: M25.50 Labs as ordered Recommend [facility] opinion at this time as well. Unsure if she has inflammatory joint disease or other cause of symptoms - IGG SUBCLASS 1,2,3,4 - IMMUNOGLOBULIN M - CELIAC ASSOC HLA-DQ GENOTYPE - CONSULT TO RHEUM/IMMUN DISEASE - CREATINE KINASE/CK - ALDOLASE BLD - MAGNESIUM - LACTATE DEHYDROGENASE 3. Myalgia - ICD9: 729.1, ICD10: M79.10 Labs as ordered Recommend [facility] [employer] opinion at this time as well. Unsure if she has inflammatory joint disease or other cause of symptoms - IGG SUBCLASS 1,2,3,4 - IMMUNOGLOBULIN M - CELIAC ASSOC HLA-DQ GENOTYPE - CONSULT TO RHEUM/IMMUN DISEASE - CREATINE KINASE/CK - ALDOLASE BLD - MAGNESIUM - LACTATE DEHYDROGENASE 4. Scalp itch - ICD9: 698.9, ICD10: L29.9 Labs as ordered Recommend [facility] [employer] opinion at this time as well. Unsure if she has inflammatory joint disease or other cause of symptoms F/u with [employer] for scalp testing - IGG SUBCLASS 1,2,3,4 - IMMUNOGLOBULIN M - CELIAC ASSOC HLA-DQ GENOTYPE - CONSULT TO RHEUM/IMMUN DISEASE - CONSULT TO DERMATOLOGY 5. Fatigue, unspecified type - ICD9: 780.79, ICD10: R53.83 Labs as ordered Recommend [facility] [employer] opinion at this time as well. Unsure if she has inflammatory joint disease or other cause of symptoms - CONSULT TO RHEUM/IMMUN DISEASE Shaehen Stewart DO Return if no improvement. Follow up with Shaheen Stewart DO. To ER if develops chest pain, shortness of breath. Discussed risks, benefits, alternatives, and potential side effects of medications. Patient/Guardian expressed understanding and agreed with the plan. See patient instructions. Shaheen Stewart DO [address] [place] [address] CNOV Observed: 11/10/2024 11:00 AM Status: COMPLETED Source: [facility] MACY NOEL ([id number]) 1985 F Date Time Provider Department 11/10/24 11:00 AM SHAHEEN STEWARTWS During your visit today, we recorded the following information about you: Temperature Pulse Respiration Blood pressure 97 degrees 64/minute 12/minute 128/80 Weight Last Period 58.5 kg 11/06/24 Shaheen Stewart DO 11/15/2024 9:04 AM Signed CC: Macy Bert is a 39 year old female who presents to the office for follow up HPI: Patient states that she has been having a lot of Joint pains, present 3 months post after of her sons. This was years ago, starting 12 years ago after of her last son. Covid Jun 2020, left partner 10/2020. Was in an apartment after this in 10/2020 and got covid 19 infection for a 2nd time. Then she was vaccinated with covid 19 infection Since then she has had scalp itching symptoms in Fall 2021- lower scalp area and hair line. She was tried on ketoconazole topical for scalp. Also increased itching in axillary area and groin and pubic areas. Was no longer able to tolerate compression stockings due to intense itching behind her knees. Was getting visible fluid retention symptoms in her lower legs. Started exercising at that time- was only 98 lbs at that time Joint pains- Was having some thoracic back pain and myalgias- was stretching and biofreeze and NSAIDs orally Moved to a different apartment and started having hair loss- thought related to a different change with well water from city water and also thought needed to change her pillow case and hairbrush. She was dating another partner- diagnosed with chlamydia- treated with antibiotics. But her partner re infected her and she was treated a 2nd time. She has noticed a decreased immune system response- had URIs and BV infections. February 2024 had her wellness visit with [facility] and she was started on OCP but had 2 episodes of blurred vision and found to have elevated blood pressure. She stopped the OCPs and then her BLOOD PRESSURE returned to normal- didn't need to be on HTN medications. Had symptoms of urinary urgency for 2 months and was eventually tested for UA/urine culture and found to have 100,000 ecoli CFU. Was treated with macrobid. Had labs in Apr 2024 for inflammatory labs and RF and CCP and DANNY which were normal Was then concerned that her scalp symptoms were potentially neurologic symptoms instead of skin symptoms. 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 Was seen in Urgent care- provided her with 6 days of steroids and put in thumb wrist splint for 10 days. After 2 days of steroids, her neck and thoracic back pain and her scalp itching were all relieved. Also was then able to shave her armpits and her axilla was not itching. Finished the prednisone taper of medication and then seen by [facility] on 10/25 and she was just starting again to have itching and neck pain increased again. She was retreated with 2nd course of steroid taper and the symptoms resolved again- finished this taper and her symptoms came back 3 days later. PAST MEDICAL HISTORY Diagnosis Date Abnormal glandular Papanicolaou smear of cervix 2006 Abn. Pap smear (cervix) Hemorrhoid internal Neck pain Tension headache PAST SURGICAL HISTORY Procedure Laterality Date PAST SURGICAL HISTORY OF RIGHT EYE chalazion removed PAST SURGICAL HISTORY OF wisdom teeth PAST SURGICAL HISTORY OF 05/18/14, 08/2014 [facility] Current Outpatient Medications Medication Sig TURMERIC ORAL Take by mouth. minoxidil (LONITEN) 2.5 mg tablet Take 1.5 mg by mouth once daily. No current facility-administered medications for this visit. ALLERGIES Allergen Reactions [place] [Hydrocodone-* Itching Social History Tobacco Use Smoking status: Never Smokeless tobacco: Never Substance Use Topics Alcohol use: No Drug use: No ROS: See HPI PE: BP 128/80 Pulse 64 Temp (Src) 97 (Right Tympanic) Resp 12 Wt 129 lb (58.5kg) LMP 11/06/2024 Gen: AANDOX3, NAD, non-toxic appearing HEENT: PERRLA, EOMs intact b/l, nares without drainage, pharynx without erythema, exudate, lesions, or drainage. Uvula midline. Neck: No LAD, no thyromegaly, no meningismus. CV: RRR, no murmur Lungs: CTA b/l, no wheezing Skin: No rashes, lesions, or wounds on exposed skin. Appears fatigued No obvious joint synovitis signs Some pain with wrist flexion and extension No obvious skin changes of the scalp No edema, normal pulses ASSESSMENT/PLAN: 1. E. coli UTI - ICD9: 599.0, 041.49, ICD10: N39.0, B96.20 (primary diagnosis) Check to make sure this is cleared from previous infection - Patient education for prevention given - URINALYSIS, WITH MICROSCOPIC - BACTERIAL CULTURE, URINE 2. Multiple joint pain - ICD9: 719.49, ICD10: M25.50 Labs as ordered Recommend [facility] opinion at this time as well. Unsure if she has inflammatory joint disease or other cause of symptoms - IGG SUBCLASS 1,2,3,4 - IMMUNOGLOBULIN M - CELIAC ASSOC HLA-DQ GENOTYPE - CONSULT TO RHEUM/IMMUN DISEASE - CREATINE KINASE/CK - ALDOLASE BLD - MAGNESIUM - LACTATE DEHYDROGENASE 3. Myalgia - ICD9: 729.1, ICD10: M79.10 Labs as ordered Recommend [facility] [employer] opinion at this time as well. Unsure if she has inflammatory joint disease or other cause of symptoms - IGG SUBCLASS 1,2,3,4 - IMMUNOGLOBULIN M - CELIAC ASSOC HLA-DQ GENOTYPE - CONSULT TO RHEUM/IMMUN DISEASE - CREATINE KINASE/CK - ALDOLASE BLD - MAGNESIUM - LACTATE DEHYDROGENASE 4. Scalp itch - ICD9: 698.9, ICD10: L29.9 Labs as ordered Recommend [facility] [employer] opinion at this time as well. Unsure if she has inflammatory joint disease or other cause of symptoms F/u with [employer] for scalp testing - IGG SUBCLASS 1,2,3,4 - IMMUNOGLOBULIN M - CELIAC ASSOC HLA-DQ GENOTYPE - CONSULT TO RHEUM/IMMUN DISEASE - CONSULT TO DERMATOLOGY 5. Fatigue, unspecified type - ICD9: 780.79, ICD10: R53.83 Labs as ordered Recommend [facility] [employer] opinion at this time as well. Unsure if she has inflammatory joint disease or other cause of symptoms - CONSULT TO RHEUM/IMMUN DISEASE Shaheen Stewart DO Return if no improvement. Follow up with Shaheen Stewart DO. To ER if develops chest pain, shortness of breath. Discussed risks, benefits, alternatives, and potential side effects of medications. Patient/Guardian expressed understanding and agreed with the plan. See patient instructions. Shaheen Stewart DO [address] [place] [address] Allergies As of Date: 11/10/2024 Noted Allergy Reaction NORCO (HYDROCODONE-ACETAMINOPHEN) 05/17/2014 9 - Itching Date Reviewed: 11/10/2024 Reviewed by: Aline Segura LPN - Fully Assessed Reason for Visit: Wrist Pain [1580] Cmt: x 3 weeks Primary Visit Diagnosis:E. coli UTI [N39.0, B96.20] Other Visit Diagnoses:Multiple joint pain [M25.50] Myalgia [M79.10] Scalp itch [L29.9] Fatigue, unspecified type [R53.83] Order(s):URINALYSIS, WITH MICROSCOPIC [SQUAWMIC] Order #: [id number] FUTURE BACTERIAL CULTURE, URINE [SQURCUL] Order #: [id number] FUTURE IGG SUBCLASS 1,2,3,4 [PXVA4119] Order #: [id number] FUTURE IMMUNOGLOBULIN M [SQIGM] Order #: [id number] FUTURE CELIAC ASSOC HLA-DQ GENOTYPE [SQCELIA] Order #: [id number] FUTURE CONSULT TO RHEUM/IMMUN DISEASE [9039] Order #: [id number]: 1 FUTURE CONSULT TO DERMATOLOGY [9006] Order #: [id number]: 1 FUTURE CREATINE KINASE/CK [SQCK] Order #: [id number] FUTURE ALDOLASE BLD [SQALD] Order #: [id number] FUTURE MAGNESIUM [SQMG1] Order #: [id number] FUTURE LACTATE DEHYDROGENASE [SQLD6] Order #: [id number] FUTURE Prescriptions as of 11/15/2024 - TURMERIC ORAL Take by mouth. - minoxidil (LONITEN) 2.5 mg tablet Take 1.5 mg by mouth once daily. Meds Comments as of 11/25/2020: Mutlivitamin and probiotic OTC. November 25, 2020 Diana Bazzi MA Problem List As Of Date 11/10/2024 Noted Resolved Supervision of normal first [Z34.00] 01/06/2012 09/14/2012 Vaginal bleeding in [O46.90] 02/08/2012 09/14/2012 uterine contractions, antepartum [O47.0*02/08/2012 09/14/2012 Irregular menses [N92.6] 11/16/2012 05/08/2014 Adjustment disorder with mixed anxiety and depr*11/17/2012 Fatigue [R53.83] 01/23/2013 05/08/2014 Joint pain [M25.50] 01/23/2013 04/26/2015 Internal hemorrhoids without mention of complic*05/05/2013 05/08/2014 Segmental and somatic dysfunction of rib cage [*09/27/2013 05/08/2014 Head region somatic dysfunction [M99.00] 09/27/2013 04/26/2015 Cervical (neck) region somatic dysfunction [M99*09/27/2013 04/26/2015 Neck pain [M54.2] 09/27/2013 04/26/2015 Headache [R51] 09/27/2013 04/26/2015 Supervision of high risk in third tri*04/26/2015 01/06/2016 complicated by previous recurrent mis*04/26/2015 01/06/2016 Subchorionic hematoma [O41.8X90, O46.8X9] 04/26/2015 01/06/2016 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] 04/26/2015 Rubella non-immune status, antepartum [O09.899,*05/02/2015 01/06/2016 Uterine size date discrepancy [O26.849] 10/02/2015 01/06/2016 Somatic dysfunction of cervical region [M99.01] 04/19/2017 Somatic dysfunction of rib [M99.08] 04/19/2017 Somatic dysfunction of head region [M99.00] 04/19/2017 Neck pain on right side [M54.2] 04/19/2017 Night sweats [R61] 04/19/2017 Bilateral hand pain [M79.641, M79.642] 04/19/2017 Encounter Status:Closed by SHAHEEN STEWART on 11/15/24 [facility] Observed: 11/08/2024 12:00 AM Status: COMPLETED Source: [facility] MACY NOEL ([id number]) 1985 F Date Time Provider Department 11/08/24 SHAHEEN STEWART [facility] During your visit today, we recorded the following information about you: Lucy Cain 11/08/2024 11:44 AM Signed 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 Please assist with new form. Elena Bah APRN.JOESPH 11/08/2024 5:10 PM Signed Completed and in the outbox in our office. Elena Carmen APRN.Radha Barrera LPN 11/08/2024 7:02 PM Signed Faxed to the number on form. Received confirmation it was received. Allergies As of Date: 11/08/2024 Noted Allergy Reaction NORCO (HYDROCODONE-ACETAMINOPHEN) 05/17/2014 9 - Itching Date Reviewed: 10/25/2024 Reviewed by: Elena Carmen APRN.JOESPH - Fully Assessed Reason for Visit: FMLA Form [Other] Prescriptions as of 11/08/2024 - minoxidil (LONITEN) 2.5 mg tablet Take 1.5 mg by mouth once daily. Meds Comments as of 11/25/2020: Mutlivitamin and probiotic OTC. November 25, 2020 Diana Bazzi MA Problem List As Of Date 11/08/2024 Noted Resolved Supervision of normal first [Z34.00] 01/06/2012 09/14/2012 Vaginal bleeding in [O46.90] 02/08/2012 09/14/2012 uterine contractions, antepartum [O47.0*02/08/2012 09/14/2012 Irregular menses [N92.6] 11/16/2012 05/08/2014 Adjustment disorder with mixed anxiety and depr*11/17/2012 Fatigue [R53.83] 01/23/2013 05/08/2014 Joint pain [M25.50] 01/23/2013 04/26/2015 Internal hemorrhoids without mention of complic*05/05/2013 05/08/2014 Segmental and somatic dysfunction of rib cage [*09/27/2013 05/08/2014 Head region somatic dysfunction [M99.00] 09/27/2013 04/26/2015 Cervical (neck) region somatic dysfunction [M99*09/27/2013 04/26/2015 Neck pain [M54.2] 09/27/2013 04/26/2015 Headache [R51] 09/27/2013 04/26/2015 Supervision of high risk in third tri*04/26/2015 01/06/2016 complicated by previous recurrent mis*04/26/2015 01/06/2016 Subchorionic hematoma [O41.8X90, O46.8X9] 04/26/2015 01/06/2016 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] 04/26/2015 Rubella non-immune status, antepartum [O09.899,*05/02/2015 01/06/2016 Uterine size date discrepancy [O26.849] 10/02/2015 01/06/2016 Somatic dysfunction of cervical region [M99.01] 04/19/2017 Somatic dysfunction of rib [M99.08] 04/19/2017 Somatic dysfunction of head region [M99.00] 04/19/2017 Neck pain on right side [M54.2] 04/19/2017 Night sweats [R61] 04/19/2017 Bilateral hand pain [M79.641, M79.642] 04/19/2017 Encounter Status:Closed by RADHA CLARK on 11/08/24 [facility] Observed: 10/26/2024 12:00 AM Status: COMPLETED Source: [facility] MACY NOEL ([id number]) 1985 F Date Time Provider Department 10/26/24 [facility] During your visit today, we recorded the following information about you: Gillian Murillo MA 10/26/2024 2:52 PM Signed Patient has been identified by name and date of : Yes, Provider Elena Carmen Date 10/26/2024 Time 251pm Type of form: FMLA Form received via: Fax When form is completed, contact patient. Form has been forwarded to: Provider's desk. Provider name: JOESPH Pizano MA Stutzman, Rebekah, APRN.JOESPH 10/27/2024 2:23 PM Signed Completed and in the outbox in our office. Elena Carmen APRN.Radha Barrera LPN 10/27/2024 2:44 PM Signed Faxed forms back to number provided on forms. Allergies As of Date: 10/26/2024 Noted Allergy Reaction NORCO (HYDROCODONE-ACETAMINOPHEN) 05/17/2014 9 - Itching Date Reviewed: 10/25/2024 Reviewed by: Elena Carmen APRN.[employer] - Fully Assessed Reason for Visit: Forms [913] Prescriptions as of 10/27/2024 - predniSONE (DELTASONE) 10 mg tablet Take 4 tabs daily for 3 days, then 2 tabs daily for 3 days, then 1 tab daily for 3 days with food. - minoxidil (LONITEN) 2.5 mg tablet Take 1.5 mg by mouth once daily. Meds Comments as of 11/25/2020: Mutlivitamin and probiotic OTC. November 25, 2020 Diana Bazzi MA Problem List As Of Date 10/26/2024 Noted Resolved Supervision of normal first [Z34.00] 01/06/2012 09/14/2012 Vaginal bleeding in [O46.90] 02/08/2012 09/14/2012 uterine contractions, antepartum [O47.0*02/08/2012 09/14/2012 Irregular menses [N92.6] 11/16/2012 05/08/2014 Adjustment disorder with mixed anxiety and depr*11/17/2012 Fatigue [R53.83] 01/23/2013 05/08/2014 Joint pain [M25.50] 01/23/2013 04/26/2015 Internal hemorrhoids without mention of complic*05/05/2013 05/08/2014 Segmental and somatic dysfunction of rib cage [*09/27/2013 05/08/2014 Head region somatic dysfunction [M99.00] 09/27/2013 04/26/2015 Cervical (neck) region somatic dysfunction [M99*09/27/2013 04/26/2015 Neck pain [M54.2] 09/27/2013 04/26/2015 Headache [R51] 09/27/2013 04/26/2015 Supervision of high risk in third tri*04/26/2015 01/06/2016 complicated by previous recurrent mis*04/26/2015 01/06/2016 Subchorionic hematoma [O41.8X90, O46.8X9] 04/26/2015 01/06/2016 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] 04/26/2015 Rubella non-immune status, antepartum [O09.899,*05/02/2015 01/06/2016 Uterine size date discrepancy [O26.849] 10/02/2015 01/06/2016 Somatic dysfunction of cervical region [M99.01] 04/19/2017 Somatic dysfunction of rib [M99.08] 04/19/2017 Somatic dysfunction of head region [M99.00] 04/19/2017 Neck pain on right side [M54.2] 04/19/2017 Night sweats [R61] 04/19/2017 Bilateral hand pain [M79.641, M79.642] 04/19/2017 Encounter Status:Closed by RADHA CLARK on 10/27/24 [facility]GRESS Observed: 10/25/2024 10:28 AM Status: COMPLETED Source: [facility] ID: [id number] Author: ELENA CARMEN APRN.[employer] Service: ? Author Type: Nurse Practitioner Type: Progress Notes Filed: 10/25/2024 14:58 Note Text: Chief Complaint Patient presents with: Wrist Pain: R wrist, joint pain, just completed 6 days of prednisone prescribe by [facility], pt reports no recent injury that she is aware of HPI Macy Noel is a 39 year old female who presents here today for Above Complaints.. Right wrist pain-one week ago noticed it was sore at work. The next morning pain woke her up out of sleep, took ibuprofen. When took her up in the morning couldn't move hand, swollen, painful and tingling. [facility] at [facility] with negative x[facility]. Was given 6 days of prednisone and brace, dx with tendinitis. The next 2 days were very painful and had a lot of weakness. The next 2 days seemed to improve some more. Currently-is definitely getting better-not terrible pain, mobility is improving, strength is improving. While on prednisone- chronic neck pain, back pain, scalp itching all improved-thinking this is inflammatory. Past medical history, appointments, medications, allergies reviewed. Previous Medical History PAST MEDICAL HISTORY Diagnosis Date Abnormal glandular Papanicolaou smear of cervix 2006 Abn. Pap smear (cervix) Hemorrhoid internal Neck pain Tension headache Previous Surgical History PAST SURGICAL HISTORY Procedure Laterality Date PAST SURGICAL HISTORY OF RIGHT EYE chalazion removed PAST SURGICAL HISTORY OF wisdom teeth PAST SURGICAL HISTORY OF 05/18/14, 08/2014 [facility] Family History FAMILY HISTORY Problem Relation Age of Onset Cancer Mother SKIN CANCER Stroke Mother Hypertension Father Aneurysm Father Abdominal Aortic other (spina bifida) Brother Cardiomyopathy Brother Arthritis Maternal Grandmother Cancer Maternal Grandmother UTERINE CANCER Diabetes Maternal Grandmother Heart Maternal Grandfather Breast Cancer Paternal Grandmother Stroke Paternal Grandmother Cancer Paternal Grandfather BONE CANCER other (eliecer syndrome) Son Patient Allergies ALLERGIES Allergen Reactions [place] [Hydrocodone-* Itching Current Medications Current Outpatient Medications on File Prior to Visit Medication Sig minoxidil (LONITEN) 2.5 mg tablet Take 1.5 mg by mouth once daily. ketoconazole (NIZORAL) 2 % shampoo Apply to affected area once daily. (Patient not taking: Reported on 10/25/2024) TARINA FE 1-20 EQ, 28, 1 mg-20 mcg (21)/75 mg (7) per tablet Take 1 tablet by mouth once daily. (Patient not taking: Reported on 05/17/2024) No current facility-administered medications on file prior to visit. Social History Social History Tobacco Use Smoking status: Never Smokeless tobacco: Never Substance Use Topics Alcohol use: No Drug use: No Review of Symptoms REVIEW OF SYSTEMS See HPI, otherwise negative EXAM: BP 106/62 (BP Site: Left Arm, BP Position: Sitting, BP Cuff Size: Regular Adult) Pulse 94 Wt 59.3 kg (130 lb 12.8 oz) LMP 11/22/2020 SpO2 98% BMI 23.71 kg/m? General Appearance: Well appearing, alert, in no acute distress, well-hydrated, well nourished.. Musculoskeletal: No joint swelling or deformity. +tenderness with palpation to right thumb and into hand Psychiatric: pleasant, cooperative. Health Maintenance List Depression Screening Never done Anxiety Screening Never done Hepatitis C Screening Never done DTaP,Tdap,Td Vaccine(2 - Td or Tdap) due on 12/07/2019 Cervical Cancer Screening due on 01/05/2021 Covid-19 Vaccine( season) due on 04/23/2024 Hepatitis B Vaccine Completed Influenza Vaccine Completed HIV Screening Completed Data reviewed Previous records, office notes ASSESSMENT/PLAN: 1. Right wrist pain - ICD9: 719.43, ICD10: M25.531 (primary diagnosis) While on the prednisone prescribed by [facility], her chronic back, upper neck, neck pain as well as scalp itch have improved significantly but seem to be returning. Questioning inflammatory process as well as tendinitis. Will try additional 9-day taper of prednisone to see if things overall continue to improved. She is scheduled to see PCP Dr. Stewart in a couple weeks and can discuss the results at that time. Ok to continue right wrist brace prn. Ok to return to work next week 10/29. - PREDNISONE 10 MG TABLET 2. Somatic dysfunction of cervical region - ICD9: 739.1, ICD10: M99.01 While on the prednisone prescribed by [facility], her chronic back, upper neck, neck pain as well as scalp itch have improved significantly but seem to be returning. Questioning inflammatory process as well as tendinitis. Will try additional 9-day taper of prednisone to see if things overall continue to improved. She is scheduled to see PCP Dr. Stewart in a couple weeks and can discuss the results at that time. Ok to continue right wrist brace prn. Ok to return to work next week 10/29. - PREDNISONE 10 MG TABLET 3. Scalp itch - ICD9: 698.9, ICD10: L29.9 While on the prednisone prescribed by [facility], her chronic back, upper neck, neck pain as well as scalp itch have improved significantly but seem to be returning. Questioning inflammatory process as well as tendinitis. Will try additional 9-day taper of prednisone to see if things overall continue to improved. She is scheduled to see PCP Dr. Stewart in a couple weeks and can discuss the results at that time. Ok to continue right wrist brace prn. Ok to return to work next week 10/29. - PREDNISONE 10 MG TABLET 4. Upper back pain - ICD9: 724.5, ICD10: M54.9 While on the prednisone prescribed by [facility] clinic, her chronic back, upper neck, neck pain as well as scalp itch have improved significantly but seem to be returning. Questioning inflammatory process as well as tendinitis. Will try additional 9-day taper of prednisone to see if things overall continue to improved. She is scheduled to see PCP Dr. Stewart in a couple weeks and can discuss the results at that time. Ok to continue right wrist brace prn. Ok to return to work next week 10/29. - PREDNISONE 10 MG TABLET 5. Neck pain - ICD9: 723.1, ICD10: M54.2 While on the prednisone prescribed by [facility], her chronic back, upper neck, neck pain as well as scalp itch have improved significantly but seem to be returning. Questioning inflammatory process as well as tendinitis. Will try additional 9-day taper of prednisone to see if things overall continue to improved. She is scheduled to see PCP Dr. Stewart in a couple weeks and can discuss the results at that time. Ok to continue right wrist brace prn. Ok to return to work next week 10/29. - PREDNISONE 10 MG TABLET Elena Carmen APRN.CNP Greater than 50% of 33-minute visit spent face to face with patient in counseling and education. CNOV Observed: 10/25/2024 9:40 AM Status: COMPLETED Source: [facility] MACY NOEL ([id number]) 1985 F Date Time Provider Department 10/25/24 9:40 AM ELENA CARMEN During your visit today, we recorded the following information about you: Pulse Blood pressure Weight 94/minute 106/62 59.3 kg Elena Carmen APRN.CNP 10/25/2024 2:58 PM Signed Chief Complaint Patient presents with: Wrist Pain: R wrist, joint pain, just completed 6 days of prednisone prescribe by [facility], pt reports no recent injury that she is aware of HPI Macy Bert is a 39 year old female who presents here today for Above Complaints.. Right wrist pain-one week ago noticed it was sore at work. The next morning pain woke her up out of sleep, took ibuprofen. When took her up in the morning couldn't move hand, swollen, painful and tingling. [facility] at [facility] with negative x[facility]. Was given 6 days of prednisone and brace, dx with tendinitis. The next 2 days were very painful and had a lot of weakness. The next 2 days seemed to improve some more. Currently-is definitely getting better-not terrible pain, mobility is improving, strength is improving. While on prednisone- chronic neck pain, back pain, scalp itching all improved-thinking this is inflammatory. Past medical history, appointments, medications, allergies reviewed. Previous Medical History PAST MEDICAL HISTORY Diagnosis Date Abnormal glandular Papanicolaou smear of cervix 2005 Abn. Pap smear (cervix) Hemorrhoid internal Neck pain Tension headache Previous Surgical History PAST SURGICAL HISTORY Procedure Laterality Date PAST SURGICAL HISTORY OF RIGHT EYE chalazion removed PAST SURGICAL HISTORY OF wisdom teeth PAST SURGICAL HISTORY OF 05/18/14, 08/2014 [facility] Family History FAMILY HISTORY Problem Relation Age of Onset Cancer Mother SKIN CANCER Stroke Mother Hypertension Father Aneurysm Father Abdominal Aortic other (spina bifida) Brother Cardiomyopathy Brother Arthritis Maternal Grandmother Cancer Maternal Grandmother UTERINE CANCER Diabetes Maternal Grandmother Heart Maternal Grandfather Breast Cancer Paternal Grandmother Stroke Paternal Grandmother Cancer Paternal Grandfather BONE CANCER other (eliecer syndrome) Son Patient Allergies ALLERGIES Allergen Reactions [place] [Hydrocodone-* Itching Current Medications Current Outpatient Medications on File Prior to Visit Medication Sig minoxidil (LONITEN) 2.5 mg tablet Take 1.5 mg by mouth once daily. ketoconazole (NIZORAL) 2 % shampoo Apply to affected area once daily. (Patient not taking: Reported on 10/25/2024) TARINA FE 1-20 EQ, 28, 1 mg-20 mcg (21)/75 mg (7) per tablet Take 1 tablet by mouth once daily. (Patient not taking: Reported on 05/17/2024) No current facility-administered medications on file prior to visit. Social History Social History Tobacco Use Smoking status: Never Smokeless tobacco: Never Substance Use Topics Alcohol use: No Drug use: No Review of Symptoms REVIEW OF SYSTEMS See HPI, otherwise negative EXAM: BP 106/62 (BP Site: Left Arm, BP Position: Sitting, BP Cuff Size: Regular Adult) Pulse 94 Wt 59.3 kg (130 lb 12.8 oz) LMP 11/22/2020 SpO2 98% BMI 23.71 kg/m? General Appearance: Well appearing, alert, in no acute distress, well-hydrated, well nourished.. Musculoskeletal: No joint swelling or deformity. +tenderness with palpation to right thumb and into hand Psychiatric: pleasant, cooperative. Health Maintenance List Depression Screening Never done Anxiety Screening Never done Hepatitis C Screening Never done DTaP,Tdap,Td Vaccine(2 - Td or Tdap) due on 12/07/2019 Cervical Cancer Screening due on 01/05/2021 Covid-19 Vaccine() due on 04/23/2024 Hepatitis B Vaccine Completed Influenza Vaccine Completed HIV Screening Completed Data reviewed Previous records, office notes ASSESSMENT/PLAN: 1. Right wrist pain - ICD9: 719.43, ICD10: M25.531 (primary diagnosis) While on the prednisone prescribed by [facility], her chronic back, upper neck, neck pain as well as scalp itch have improved significantly but seem to be returning. Questioning inflammatory process as well as tendinitis. Will try additional 9-day taper of prednisone to see if things overall continue to improved. She is scheduled to see PCP Dr. Stewart in a couple weeks and can discuss the results at that time. Ok to continue right wrist brace prn. Ok to return to work next week 10/29. - PREDNISONE 10 MG TABLET 2. Somatic dysfunction of cervical region - ICD9: 739.1, ICD10: M99.01 While on the prednisone prescribed by [facility], her chronic back, upper neck, neck pain as well as scalp itch have improved significantly but seem to be returning. Questioning inflammatory process as well as tendinitis. Will try additional 9-day taper of prednisone to see if things overall continue to improved. She is scheduled to see PCP Dr. Stewart in a couple weeks and can discuss the results at that time. Ok to continue right wrist brace prn. Ok to return to work next week 10/29. - PREDNISONE 10 MG TABLET 3. Scalp itch - ICD9: 698.9, ICD10: L29.9 While on the prednisone prescribed by [facility], her chronic back, upper neck, neck pain as well as scalp itch have improved significantly but seem to be returning. Questioning inflammatory process as well as tendinitis. Will try additional 9-day taper of prednisone to see if things overall continue to improved. She is scheduled to see PCP Dr. Stewart in a couple weeks and can discuss the results at that time. Ok to continue right wrist brace prn. Ok to return to work next week 10/29. - PREDNISONE 10 MG TABLET 4. Upper back pain - ICD9: 724.5, ICD10: M54.9 While on the prednisone prescribed by [facility], her chronic back, upper neck, neck pain as well as scalp itch have improved significantly but seem to be returning. Questioning inflammatory process as well as tendinitis. Will try additional 9-day taper of prednisone to see if things overall continue to improved. She is scheduled to see PCP Dr. Stewart in a couple weeks and can discuss the results at that time. Ok to continue right wrist brace prn. Ok to return to work next week 10/29. - PREDNISONE 10 MG TABLET 5. Neck pain - ICD9: 723.1, ICD10: M54.2 While on the prednisone prescribed by [facility], her chronic back, upper neck, neck pain as well as scalp itch have improved significantly but seem to be returning. Questioning inflammatory process as well as tendinitis. Will try additional 9-day taper of prednisone to see if things overall continue to improved. She is scheduled to see PCP Dr. Stewart in a couple weeks and can discuss the results at that time. Ok to continue right wrist brace prn. Ok to return to work next week 10/29. - PREDNISONE 10 MG TABLET Elena Carmen APRN.CNP Greater than 50% of 33-minute visit spent face to face with patient in counseling and education. Referring Provider: [facility] [[id number]] Allergies As of Date: 10/25/2024 Noted Allergy Reaction NORCO (HYDROCODONE-ACETAMINOPHEN) 05/17/2014 9 - Itching Date Reviewed: 10/25/2024 Reviewed by: Elena Carmen APRN.[employer] - Fully Assessed Reason for Visit: Wrist Pain [1580] Cmt: R wrist, joint pain, just completed 6 days of prednisone [facility] by [facility], pt reports no recent injury that she is aware of Primary Visit Diagnosis:Right wrist pain [M25.531] Other Visit Diagnoses:Somatic dysfunction of cervical region [M99.01] Scalp itch [L29.9] Upper back pain [M54.9] Neck pain [M54.2] Order(s):predniSONE (DELTASONE) 10 mg tabletTake 4 tabs daily for 3 days, then 2 tabs daily for 3 days, then 1 tab daily for 3 days with food.Disp: 21 tabletRfl: 0 Prescriptions as of 10/25/2024 - predniSONE (DELTASONE) 10 mg tablet Take 4 tabs daily for 3 days, then 2 tabs daily for 3 days, then 1 tab daily for 3 days with food. - minoxidil (LONITEN) 2.5 mg tablet Take 1.5 mg by mouth once daily. Meds Comments as of 11/25/2020: Mutlivitamin and probiotic OTC. November 25, 2020 Diana Bazzi MA Problem List As Of Date 10/25/2024 Noted Resolved Supervision of normal first [Z34.00] 01/06/2012 09/14/2012 Vaginal bleeding in [O46.90] 02/08/2012 09/14/2012 uterine contractions, antepartum [O47.0*02/08/2012 09/14/2012 Irregular menses [N92.6] 11/16/2012 05/08/2014 Adjustment disorder with mixed anxiety and depr*11/17/2012 Fatigue [R53.83] 01/23/2013 05/08/2014 Joint pain [M25.50] 01/23/2013 04/26/2015 Internal hemorrhoids without mention of complic*05/05/2013 05/08/2014 Segmental and somatic dysfunction of rib cage [*09/27/2013 05/08/2014 Head region somatic dysfunction [M99.00] 09/27/2013 04/26/2015 Cervical (neck) region somatic dysfunction [M99*09/27/2013 04/26/2015 Neck pain [M54.2] 09/27/2013 04/26/2015 Headache [R51] 09/27/2013 04/26/2015 Supervision of high risk in third tri*04/26/2015 01/06/2016 complicated by previous recurrent mis*04/26/2015 01/06/2016 Subchorionic hematoma [O41.8X90, O46.8X9] 04/26/2015 01/06/2016 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] 04/26/2015 Rubella non-immune status, antepartum [O09.899,*05/02/2015 01/06/2016 Uterine size date discrepancy [O26.849] 10/02/2015 01/06/2016 Somatic dysfunction of cervical region [M99.01] 04/19/2017 Somatic dysfunction of rib [M99.08] 04/19/2017 Somatic dysfunction of head region [M99.00] 04/19/2017 Neck pain on right side [M54.2] 04/19/2017 Night sweats [R61] 04/19/2017 Bilateral hand pain [M79.641, M79.642] 04/19/2017 Prescriptions ordered this encounter Disp Refills Start End PREDNISONE 10 MG TABLET 21 t* 0 10/25/2024 11/03/2024 Sig: Take 4 tabs daily for 3 days, then 2 tabs daily for 3 days, then 1 tab daily for 3 days with food. Medications Discontinued During This Encounter Prescriptions - TARINA FE 1-20 EQ, 28, 1 mg-20 mcg (21)/75 mg (7) per tablet (Discontinued) Reported on 05/17/2024 - ketoconazole (NIZORAL) 2 % shampoo (Discontinued) Reported on 10/25/2024 Level of Service: OFFICE/OUTPATIENT ESTABLISHED MOD MDM 30 MIN [01776] Additional E/M codes: VISIT CPLX INHERENT EANDM ASSOC WITH MED * Encounter Status:Closed by ELENA CARMEN on 10/25/24 CNCO Observed: 10/25/2024 12:00 AM Status: COMPLETED Source: [facility] Letter Text ALLERGIES DATE TYPE / CODE NAME / CODE REACTION SEVERITY SOURCE 05/17/2014 DRUG/[id number](SN OMED CT) HYDROCODONE-ACETA MINOPHEN ITCHING [facility] ENCOUNTERS ADMIT/DISCHARGE ACCOUNT NUMBER ADMITTING ENCOUNTER CLASS LOC ATION SOURCE 01/11/2025/ 5 [id number] [facility] 11/10/2024/ 5 [id number] [facility] 10/25/2024/ [id number] [facility] PAYERS ENCOUNTER GUARANTOR PAYER SUBSCRIBER SOURCE 01/11/2025 [facility] Insuranc e[facility]Policy Number: [id number] Date:[id number] Name:Sivakumar MACY VACAHDOB: [id number] [place] [address] [facility] 11/10/2024 Primary Insuranc e:[facility]Policy Number: [id number] Date:6798-17-52Sgqv Name:Sivakumar MACY VACAHDOB: [id number] [place] [address] [facility] 10/25/2024 Primary Insuranc e:[facility]Policy Number: [id number] Date:4619-95-71Oyxx Name:Sivakumar MACY VACAHDOB: [id number] [facility] [place] [address] [facility]
--- NOTE | 2025-05-22 12:31 | US_ITS ---
PROCEDURE: PELVIC W/ TRANSVAGINAL 05/22/2025 REASON FOR EXAM: IRREGULAR PERIODS TECHNIQUE: Procedure Code: [id number] Modality: US Procedure: PELVIC W/ TRANSVAGINAL COMPARISON: None FINDINGS: LMP 05/07/2025 Uterus: 8.4 x 5.0 x 3.6 cm. No demonstrated fibroid. Uterus is partially septated Endometrium: Hyperechoic measuring 13 mm echotexture is trilaminar Right ovary: 4.1 x 3.2 x 2.4 cm. There is a complex 3.0 x 2.5 x 2.0 cm cyst., there is a hyperechoic area in the right ovary measuring 0.3 x 0.2 x 0.3 cm. Normal flow noted Left ovary: 2.7 x 2.0 x 1.5 cm no suspicious adnexal mass, normal color Doppler flow. Other: No free fluid in the cul de sac, bladder distends normally US/Pelvic w/ Transvaginal IMPRESSION: Partially septated uterus with normal endometrium for age. No demonstrated fib roids Complex right adnexal cyst, given patient's age, 4-6 week follow-up ultrasound is recommended to assess resolution/stability Reading Location: [id number]
== END | disposition home or self-care (01) ==
LOC: US 12:30
PROVIDERS: PCP Student in an Organized Health Care Education/Training Program; Referring Provider Obstetrics & Gynecology; Visit Provider Obstetrics & Gynecology
DX: N92.6 Irregular menstruation, unspecified (principal)
CPT/HCPCS: 76830; 76856

== ENCOUNTER → 2025-07-24 | Outpatient (CLI) | payer OTHER, SELFPAY ==
--- NOTE | 2025-07-24 12:28 | US_ITS ---
PROCEDURE: PELVIC W/ TRANSVAGINAL 07/24/2025 REASON FOR EXAM: OVARIAN CYST TECHNIQUE: Procedure Code: [id number] Modality: US Procedure: PELVIC W/ TRANSVAGINAL COMPARISON: 05/22/2025 FINDINGS: Uterus measures 7.4 x 6.3 x 3.8 cm. It is anteverted position. No uterine fibroids are noted. Endometrial stripe measures 14 mm. It is hyperechoic. Nabothian cysts are noted. Right ovary measures 3.6 x 2.4 x 1.6 cm and left ovary measures 4 x 3 x 2.2 cm. There is normal bilateral symmetrical blood flow within bilateral ovaries. 2 mm calcification noted within the right ovary. No significant free fluid within the cul-de-sac. US/Pelvic w/ Transvaginal IMPRESSION: Stable 2 mm calcification within the right ovary. No definite ovarian cyst is noted on this sonogram. Reading Location: [id number]
== END | disposition home or self-care (01) ==
LOC: OPUS 12:27
PROVIDERS: PCP Student in an Organized Health Care Education/Training Program; Referring Provider Obstetrics & Gynecology; Visit Provider Obstetrics & Gynecology
DX: N83.299 Other ovarian cyst, unspecified side (principal)
CPT/HCPCS: 76830; 76856